=== PATIENT | male | born 1965 | race Caucasian/White ===

== ENCOUNTER 2018-01-02 03:30 | Inpatient (IN) | payer OTHER ==
[~2018-01-02] VITALS: Ht 170.2 cm; Wt 88.0 kg
[2018-01-02] VITALS (17 sets, daily range): BP systolic 92–131; BP diastolic 60–80
--- NOTE | 2018-01-02 03:41 | NUR ---
Respiratory Therapist at bedside for respiratory intervention.
--- NOTE | 2018-01-02 03:41 | NUR ---
XRAY AT BEDSIDE
[2018-01-02] MEDS ORDERED: ACETAMINOPHEN 325 MG SUPP RC ONE (03:43)
[2018-01-02] MEDS ORDERED: NACL 0.9% 1,000 ML IV ONE ×2 (03:50→06:50)
--- NOTE | 2018-01-02 03:50 | NUR ---
52YO M BIBA FROM [facility] [place], FOR DECREASED O2 SAT. PT WAS SATING AT 89 ON ARIVAL, RT WAS CALLED ON ARRIVAL, BILAT. RHONCHI HEARD THROUGHOUT. PT HAS G-TUBE, SUPUBIC VELASQUEZ PRIOR TO ARRIVAL. PT HAS TRACH TO VENT. VENT SETTING ARE FOLLOWS AC/VC MODE, FIO2 50 %, VT 500, PEEP 5, PMAX 40, RATE 16. PT HAS BILAT LOWER EXTREMITY CONTRACTURE WELL RIGHT ARM. PT WAS FEBRILE ON ADMISSION. COOLING MEASURES WERE APPLIED. ER/MD MADE AWARE.
[2018-01-02] MEDS ORDERED: MER1I IV (04:11)
[2018-01-02] MEDS ORDERED: LORA-476 PO (04:11)
[2018-01-02] MEDS ORDERED: VANC1PDS13 IV (04:11)
[2018-01-02] MEDS ORDERED: LACT-2 (04:11)
[2018-01-02] MEDS ORDERED: ZOLP5TAB1 PO (04:11)
[2018-01-02] MEDS ORDERED: ASCO500T45 PO (04:11)
[2018-01-02] MEDS ORDERED: MULT15LI1 GT (04:11)
[2018-01-02] MEDS ORDERED: POTA10TE30 PO (04:11)
[2018-01-02] MEDS ORDERED: CARB15SO23 OP (04:11)
[2018-01-02] MEDS ORDERED: AMIK500I IV (04:11)
[2018-01-02] MEDS ORDERED: CITA40TA13 PO (04:11)
[2018-01-02] MEDS ORDERED: MULT400T8 PO (04:11)
[2018-01-02] MEDS ORDERED: MAGN400S60 PO (04:11)
[2018-01-02] MEDS ORDERED: FAMO-90 PO (04:11)
[2018-01-02] MEDS ORDERED: ALLO100T21 PO (04:11)
[2018-01-02] MEDS ORDERED: LYR50 PO (04:11)
[2018-01-02] MEDS ORDERED: LEVOFLOXACIN 500 MG/D5W PREMIX 100 ML IV ONE (04:20)
--- NOTE | 2018-01-02 04:20 | NUR ---
Patient being evaluated by physician at bedside.
[2018-01-02] MEDS ORDERED: ACETAMINOPHEN 650 MG SUPP RC ONE (05:20)
[2018-01-02 05:28] LABS: APPEARANCE,URINE CLOUDY (CLEAR); BILIRUBIN,URINE NEGATIVE (NEGATIVE); BLOOD, URINE 2+ (NEGATIVE); COLOR,URINE YELLOW (YELLOW); LEUKOCYTE ESTERASE ,URINE 3+ (NEGATIVE); NITRITE, URINE POSITIVE (NEGATIVE); PH,URINE 8.5 (5.0-9.0); UGLUCOSE NEGATIVE (NEGATIVE)
[2018-01-02 05:28] LABS: HEMOGLOBIN 12.9 g/dL (12.0-18.0); MEAN CORPUSCULAR HEMOGLOBIN 28 pg (27-31); MEAN CORPUSCULAR HGB CONC 32 g/dL (33-37); MEAN CORPUSCULAR VOLUME 85.6 fL (80-94); PLATELET COUNT (AUTO) 323 K/uL (140-450); RED BLOOD CELL COUNT(AUTO) 4.68 MIL/uL (4.20-6.10); RED CELL DISTRIBUTION WIDTH 19.6 % (11.6-13.7); WHITE BLOOD COUNT (AUTO) 16.3 K/uL (4.8-10.8)
[2018-01-02 05:39] LABS: RBC,URINE 3-10 (FEW) /HPF (0-5); WBC,URINE 20-60 /HPF (0-5)
[2018-01-02 05:41] LABS: ANION GAP 9.2 (8-16); CREATININE 0.5 mg/dL (0.7-1.3); POTASSIUM 3.2 mmol/L (3.5-5.1)
[2018-01-02 05:49] LABS: LYMPHOCYTES % (MANUAL) 5 % (20-46); MONOCYTES % (MANUAL) 1 % (5-12)
[2018-01-02 05:54] LABS: ALBUMIN 2.7 g/dL (3.4-5.0); TOTAL BILIRUBIN 0.4 mg/dL (0.0-1.0)
--- NOTE | 2018-01-02 06:00 | NUR ---
Patient noted to have existing wounds upon arrival to ER. Photos taken of wound and placed in chart. Wound covered with dressing. Physician informed.
--- NOTE | 2018-01-02 06:48 | NUR ---
LAB AT BEDSIDE
--- NOTE | 2018-01-02 06:53 | NUR ---
Respiratory Therapist at bedside for respiratory intervention.
--- NOTE | 2018-01-02 06:57 | NUR ---
PATIENT AWAKE. TRACH TO VENT. TRACH PORTEX 8. AIRWAY SECURE AND PATENT. SUCTIONED LARGE AMOUNT OF THICK YELLOW, BLOOD TINGED SPUTUM. RECEIVED PATIENT ON VENT SETTINGS: AC/VC 500, RATE 16, 50% FIO2, PEEP 5. PATIENT TOLERATING VENT WELL. ALARMS ON AND AUDIBLE. WILL CONTINUE TO MONITOR.
--- NOTE | 2018-01-02 07:17 | NUR ---
Pt report given to WAYNE ETIENNE. Transfer of care at this time.
--- NOTE | 2018-01-02 07:28 | NUR ---
MED HX; CHRONIC RESP FAILURE, RT FEMUR FX, DVT, PSEUDOANEURYSM, OSTOPENIA, OSTEOARTHRITIS, HTN, CVA, DYSPHAGIA, NEUROGENIC BLADDER, GERD, FUNC QUAD, CONTRACTURES, PRESSURE ULCER
--- NOTE | 2018-01-02 07:33 | NUR ---
RECIEVED BEDSIDE REPORT FROM [facility] VITALS TAKEN AND UPDATED IN CHART.
[2018-01-02] MEDS ORDERED: ONDANSETRON 4 MG/2 ML VIAL IVP PRN (08:50)
[2018-01-02] MEDS ORDERED: LORazepam 1 MG TAB PO PRN (08:50)
[2018-01-02] MEDS ORDERED: ACETAMINOPHEN 325 MG TAB GT PRN (08:50)
[2018-01-02] MEDS ORDERED: MULTIVITAMIN WITH FOLIC ACID PO SCH (09:00)
[2018-01-02] MEDS ORDERED: FAMOTIDINE 20 MG TAB PO SCH (09:00)
[2018-01-02] MEDS: POTASSIUM CHLORIDE 10 MEQ TABER PO SCH ×2 (09:00→13:33)
[2018-01-02] MEDS ORDERED: [UNRECOGNIZED DRUG - OTHER] PO SCH (09:00)
[2018-01-02] MEDS ORDERED: ASCORBIC ACID 500 MG TAB PO SCH (09:00)
[2018-01-02] MEDS ORDERED: MAGNESIUM HYDROXIDE 2400 MG/30 ML UDC PO SCH (09:00)
[2018-01-02] MEDS ORDERED: CITALOPRAM 20 MG TAB PO SCH (09:00)
[2018-01-02] MEDS ORDERED: GLYCERIN OP SCH (09:00)
[2018-01-02] MEDS ORDERED: LACTOBACILLUS ACIDOPHILUS SCH (09:00)
[2018-01-02] MEDS ORDERED: PREGABALIN 50 MG CAP PO SCH (09:00)
[2018-01-02] MEDS ORDERED: ALLOPURINOL 100 MG TAB PO SCH (09:00)
[2018-01-02] MEDS ORDERED: CARBOXYMETHYLCELLULOS OP SCH (09:00)
[2018-01-02] MEDS ORDERED: LACTOBACILLUS RHAMNOSUS GG 1 EACH CAP PO SCH (09:00)
[2018-01-02] MEDS ORDERED: LORazepam 1 MG TAB GT PRN (09:10)
[2018-01-02] MEDS: PREGABALIN 50 MG CAP GT SCH ×3 (10:00→20:47)
[2018-01-02] MEDS: CITALOPRAM 20 MG TAB GT SCH ×2 (10:00→14:30)
[2018-01-02] MEDS: FAMOTIDINE 20 MG TAB GT SCH ×2 (10:00→13:33)
[2018-01-02] MEDS: ASCORBIC ACID 500 MG TAB GT SCH ×2 (10:00→13:32)
[2018-01-02] MEDS: LACTOBACILLUS RHAMNOSUS GG 1 EACH CAP GT SCH ×2 (10:00→13:32)
[2018-01-02] MEDS: ALLOPURINOL 100 MG TAB GT SCH ×2 (10:00→14:30)
[2018-01-02] MEDS: MAGNESIUM HYDROXIDE 2400 MG/30 ML UDC GT SCH ×3 (10:00→20:47)
--- NOTE | 2018-01-02 10:06 | NUR ---
PT TAKEN TO ICU 1
--- NOTE | 2018-01-02 10:30 | NUR ---
PT TRANSFERRED FROM ER TO ICU VIA GURNEY X 3 ASSISTS. BEDSIDE REPORT RECEIVED FROM ER NURSE LOWELL. PT IS NONVERBAL, FOLLOWS SIMPLE COMMANDS. AFEBRILE UPON ARRIVAL. FLACC 0. SINUS RHYTHM ON MONITOR. PT IS ON TRACH TO VENT W/ SETTINGS AC 16, FIO2 50%, VT 500, PEEP 5. ABDOMEN ROUND, SOFT, NONDISTENDED. G-TUBE IN PLACE. PT CAME IN WITH LIQUID BOWEL MOVEMENT. CLEANED PT AND CHANGED GOWN. PT TOLERATED WELL. PERIPHERAL IV G22 TO ABDOMEN ASYMPTOMATIC AND INTACT. ANOTHER PERIPHERAL IV G22 TO LEFT SHOULDER DISLODGED. SUPRAPUBIC CATHETER IN PLACE DRAINING URINE TO DRAINAGE BAG. PT IS DIAPHORETIC, SKIN IS WARM TO TOUCH. RIGHT ARM FLACCID, ABLE TO MOVE LEFT UPPER EXTREMITY. BILATERAL LOWER EXTREMITIES CONTRACTED. PRESSURE WOUND TO RIGHT HEEL AND LEFT BUTTOCK, AND SCAB TO LEFT HEEL NOTED. HOB 30 DEGREES, CALL LIGHT WITHIN REACH AND BED IN LOWEST POSITION. WILL CONTINUE TO MONITOR.
--- NOTE | 2018-01-02 10:34 | NUR ---
PATIENT IN ICU BED 1. TRACH TO VENT. VENT SETTINGS MAINTAINED DOCUMENTED. VENT PLUGGED INTO RED OUTLET. ALARMS ON AND AUDIBLE. AMBU BAG AT BEDSIDE. NO RESPIRATORY DISTRESS AT THIS TIME. WILL CONTINUE TO MONITOR.
--- NOTE | 2018-01-02 11:20 | NUR ---
PATIENT AWAKE, RESTING. VENT CHECK DONE. SUCTIONED LARGE AMOUNT OF THICK YELLOW SECRETIONS. WILL CONTINUE TO MONITOR.
[2018-01-02] MEDS: DEXT 5% /NACL 0.9% 1,000 ML IV SCH ×2 (11:33→18:48)
[2018-01-02] MEDS: HYDROcodone/APAP 5/325 MG 1 TAB TAB GT PRN ×2 (11:43→21:15)
--- NOTE | 2018-01-02 11:46 | NUR ---
PATIENT HAS BEEN SCREENED AND CATEGORIZED HIGH NUTRITION RISK. PATIENT WILL BE SEEN WITHIN 1-2 DAYS OF ADMISSION. 01/03/18 - 01/04/18 MARILYN KRUEGER MBA, JOANA Addendum: 01/02/18 at [address] DATE OF ASSESSMNET IS 01/02/18 - 01/03/18
[2018-01-02] MEDS ORDERED: ALBUTEROL SULFATE/IPRATROPIU 3 ML SOL IH PRN (12:20)
[2018-01-02] MEDS ORDERED: ACETYLCYSTEINE 20% (200 MG/ML) 200 MG/ML VIAL INH SCH (12:20)
--- NOTE | 2018-01-02 12:54 | NUR ---
IN TO SEE AND EXAMINE PATIENT, UPDATED ON PATIENT'S CONDITION. WILL FOLLOW UP ON ANY ORDERS.
[2018-01-02] MEDS ORDERED: VANCOMYCIN PER PHARMACY MC PRN (12:55)
[2018-01-02] MEDS ORDERED: AMIKACIN PER PHARMACY MC PRN (12:55)
[2018-01-02] MEDS ORDERED: metroNIDAZOLE 500 MG TAB PO SCH (13:00)
--- NOTE | 2018-01-02 13:11 | NUR ---
PATIENT QUIETLY RESTING. TOLERATING VENT WELL. ALARMS ON AND AUDIBLE. WILL CONTINUE TO MONITOR.
--- NOTE | 2018-01-02 13:37 | NUR ---
PATIENT CLEANED AND CHANGED, NO SIGNS OF DISTRESS NOTED. WILL CONTINUE TO MONITOR
[2018-01-02] MEDS: VANCOMYCIN 1GM/DEXT 5% PREMIX 200 ML IV SCH ×2 (14:31→21:14)
[2018-01-02] MEDS: ACETYLCYSTEINE 20% (200 MG/ML) 200 MG/ML VIAL INH SCH ×3 (15:00→23:05)
[2018-01-02] MEDS: ALBUTEROL SULFATE/IPRATROPIU 3 ML SOL IH SCH ×3 (15:30→23:04)
--- NOTE | 2018-01-02 15:50 | NUR ---
PATIENT AWAKE. VENT CHECK DONE. DUONEB BREATHING TX ADMINISTERED. MUCOMYST NOT AVAILABLE AT THIS TIME. TOLERATED TX WELL. SUCTIONED LARGE AMOUNT OF THICK YELLOW SECRETIONS. TRACH CARE PERFORMED, TOLERATED WELL/ WILL CONTINUE TO MONITOR.
[2018-01-02] MEDS ORDERED: LEVOFLOXACIN 500 MG/D5W PREMIX 100 ML IV SCH (16:00)
--- NOTE | 2018-01-02 16:04 | NUR ---
PATIENT IS OBSERVED SLEEPING, NO SIGNS OF DISTRESS NOTED.
--- NOTE | 2018-01-02 17:20 | NUR ---
PATIENT AWAKE AND ALERT. SUCTIONED LARGE AMOUNT OF THICK YELLOW SECRETIONS. VENT PLUGGED INTO RED OUTLET. AMBU BAG AT BEDSIDE. ALARMS ON AND AUDIBLE. NO RESPIRATORY DISTRESS NOTED AT THIS TIME.
[2018-01-02] MEDS: AMIKACIN 500 MG in DEXTROSE 5% 100 ML IV SCH (17:41)
[2018-01-02] MEDS: POLYVINYL ALCOHOL 1.4% OP 15 ML SOL OP SCH ×2 (17:41→20:47)
--- NOTE | 2018-01-02 19:30 | NUR ---
BEDSIDE REPORT RECEIVED FROM MORNING NURSE RN. GREY. PT IS AWAKE, NONVERBAL, FOLLOWS SIMPLE COMMANDS. FLACC 0. SINUS RHYTHM ON THE MONITOR. PT IS ON TRACH TO VENT W/ SETTINGS AC 16, FIO2 50%, VT 500, PEEP 5. ABDOMEN ROUND, SOFT, NONDISTENDED. G-TUBE IN PLACE AT LEFT UPPER QUAD. PERIPHERAL TO LEFT ABDOMEN, G 22. ASYMPTOMATIC AND INTACT AND PATENT. SUPRAPUBIC CATHETER IN PLACE DRAINING YELLOW, CLOUDY URINE TO DRAINAGE BAG. PT IS DIAPHORETIC, SKIN IS WARM TO TOUCH. RIGHT ARM FLACCID, ABLE TO MOVE LEFT UPPER EXTREMITY. BILATERAL LOWER EXTREMITIES CONTRACTED. PRESSURE WOUND TO RIGHT HEEL AND LEFT BUTTOCK, AND SCAB TO LEFT HEEL NOTED. HOB 30 DEGREES, CALL LIGHT WITHIN REACH AND BED IN LOWEST POSITION. WILL CONTINUE TO MONITOR.
--- NOTE | 2018-01-02 19:30 | NUR ---
ENDORSED CONTINUITY OF CARE AT BEDSIDE TO WATER RESOURCE ENGINEERING SPECIALIST RN, ADRIANA. PATIENT PRESENTS NO SIGNS OF ACUTE DISTRESS AT THIS TIME.
[2018-01-02] MEDS ORDERED: ZOLPIDEM 5 MG TAB PO PRN (21:00)
[2018-01-02] MEDS ORDERED: ZOLPIDEM 5 MG TAB GT PRN (21:00)
--- NOTE | 2018-01-02 21:15 | NUR ---
ADMINISTERED SCHEDULED MEDICATIONS ORDERED, TOLERATED WELL. PT COMPLAINED ABOUT BACK PAIN 02/27. ADMINISTERED PRN NORCO 5/325 MG ORDERED. NO ACUTE RESPIRATORY DISTRESS NOTED. ST ON THE MONITOR. HR 102 NOTED. WILL CONTINUE TO MONITOR.
--- NOTE | 2018-01-02 21:30 | NUR ---
ADMINISTERED IV ABX ORDERED, TOLERATED WELL. PT IS IN ASLEEP, AROUSABLE TO VOICE. NO ACUTE DISTRESS NOTED. WILL CONTINUE TO MONITOR.
--- NOTE | 2018-01-02 23:20 | NUR ---
DR. RESENDIZ AT BEDSIDE TO CHECK THE PT. WILL FOLLOW THE ORDER.
[2018-01-03] VITALS (24 sets, daily range): BP systolic 92–131; BP diastolic 57–81
--- NOTE | 2018-01-03 01:00 | NUR ---
PT IS IN ASLEEP, AROUSABLE TO VOICE. FLACC 0. NO ACUTE RESPIRATORY DISTRESS NOTED. SR ON THE MONITOR. WILL CONTINUE TO MONITOR.
--- NOTE | 2018-01-03 02:40 | NUR ---
PT IS IN ASLEEP, AROUSABLE TO VOICE. NO ACUTE DISTRESS NOTED. NO FEVER. SR ON THE MONITOR. HOB ELEVATED 30 DEGREE. CALL LIGHT WITHIN REACH. WILL CONTINUE TO MONITOR.
[2018-01-03] MEDS: ALBUTEROL SULFATE/IPRATROPIU 3 ML SOL IH SCH ×6 (03:33→23:22)
[2018-01-03] MEDS: ACETYLCYSTEINE 20% (200 MG/ML) 200 MG/ML VIAL INH SCH ×6 (03:34→23:22)
--- NOTE | 2018-01-03 05:00 | NUR ---
PT IS IN ASLEEP, AROUSABLE TO VOICE, ABLE TO FOLLOW SIMPLE COMMANDS, ABLE TO MAKE NEEDS KNOWN. NO ACUTE DISTRESS NOTED. SR ON THE MONITOR. WILL CONTINUE TO MONITOR.
[2018-01-03] MEDS: DEXT 5% /NACL 0.9% 1,000 ML IV SCH ×3 (05:22→23:16)
[2018-01-03] MEDS: AMIKACIN 500 MG in DEXTROSE 5% 100 ML IV SCH ×2 (05:26→17:33)
--- NOTE | 2018-01-03 06:15 | NUR ---
ADMINISTERED SCHEDULED IV ABX, TOLERATED WELL. NO FEVER, NO ACUTE DISTRESS NOTED. WILL CONTINUE TO MONITOR.
[2018-01-03] MEDS: VANCOMYCIN 1GM/DEXT 5% PREMIX 200 ML IV SCH (06:16)
[2018-01-03 06:36] LABS: CARBON DIOXIDE 26.5 mmol/L (21-32); CREATININE 0.5 mg/dL (0.7-1.3); POTASSIUM 3.5 mmol/L (3.5-5.1); TOTAL BILIRUBIN 0.4 mg/dL (0.0-1.0)
[2018-01-03 06:37] LABS: ALBUMIN 2.2 g/dL (3.4-5.0)
--- NOTE | 2018-01-03 06:47 | NUR ---
RECEIVED PT ON CARESCAPE ON A/C 16 VT500 PEEP5 FIO2 50 ALARMS ARE ON AND AUDIBLE BMV HOB PTS TRACH PORTEX 8 IS SECURE BS RHONCI PT IN HF QUIET I\L HHN GIVEN WITH 3 MG DUONEB AND 2 ML 20% MUCOMYST VENT PLUGGED INTO RED OUTLET NO DISTRESS NOTED
[2018-01-03 06:48] LABS: HEMOGLOBIN 11.4 g/dL (12.0-18.0); MEAN CORPUSCULAR HEMOGLOBIN 29 pg (27-31); MEAN CORPUSCULAR HGB CONC 33 g/dL (33-37); MEAN CORPUSCULAR VOLUME 86.8 fL (80-94); PLATELET COUNT (AUTO) 252 K/uL (140-450); RED BLOOD CELL COUNT(AUTO) 3.92 MIL/uL (4.20-6.10); RED CELL DISTRIBUTION WIDTH 18.1 % (11.6-13.7); WHITE BLOOD COUNT (AUTO) 23.4 K/uL (4.8-10.8)
--- NOTE | 2018-01-03 07:30 | NUR ---
REPORT GIVEN TO RN. REECE. FOR CONTINUITY OF CARE.
--- NOTE | 2018-01-03 08:00 | NUR ---
INITIAL SHIFT ASSESSMENT DONE (SEE ASSESSMENT PART). AWAKE AND FOLLOWING COMMAND. ARNULFO AND PAUL ARE CONTRACTED D/T HX OF CVA. COMMUNICATES BY MOUTH-WORDING. NO C/O PAIN. ON VENTILATOR VIA TRACH, TOLERATING CURRENT SETTINGS WELL. O2 SAT 95-96%. SR ON MONITOR. SBP IN 110'S. NO ECTOPY NOTED. G-TUBE PATENT, INTACT, AND CLAMPED. HOB ELEVATED. UPDATED OF PLAN OF CARE. WILL CONTINUE TO MONITOR.
[2018-01-03 08:09] LABS: LYMPHOCYTES % (MANUAL) 15 % (20-46)
[2018-01-03 08:10] LABS: EOSINOPHILS % (MANUAL) 1 % (0-4); MONOCYTES % (MANUAL) 6 % (5-12)
[2018-01-03] MEDS ORDERED: MULTIVITAMIN 1 TAB PO SCH (09:00)
[2018-01-03] MEDS: MAGNESIUM HYDROXIDE 2400 MG/30 ML UDC GT SCH ×2 (09:00→21:00)
[2018-01-03] MEDS: LACTOBACILLUS RHAMNOSUS GG 1 EACH CAP GT SCH (09:22)
[2018-01-03] MEDS: ASCORBIC ACID 500 MG TAB GT SCH (09:23)
[2018-01-03] MEDS: POTASSIUM CHLORIDE 10 MEQ TABER PO SCH (09:23)
[2018-01-03] MEDS: PREGABALIN 50 MG CAP GT SCH ×2 (09:23→20:15)
[2018-01-03] MEDS: MULTIVITAMIN 1 TAB PO SCH (09:23)
--- NOTE | 2018-01-03 09:23 | NUR ---
PATIENT HAS BEEN SCREENED AND CATEGORIZED HIGH NUTRITION RISK. PATIENT WILL BE SEEN WITHIN 1-2 DAYS OF ADMISSION. 01/02/18 - 01/03/[address]
[2018-01-03] MEDS: FAMOTIDINE 20 MG TAB GT SCH (09:24)
[2018-01-03] MEDS: CITALOPRAM 20 MG TAB GT SCH (09:24)
[2018-01-03] MEDS: ALLOPURINOL 100 MG TAB GT SCH (09:24)
--- NOTE | 2018-01-03 09:24 | NUR ---
PATIENT HAS BEEN SCREENED AND CATEGORIZED HIGH NUTRITION RISK. PATIENT WILL BE SEEN WITHIN 1-2 DAYS OF ADMISSION. 01/03/18 - 01/04/[address] Addendum: 01/03/18 at [address] DISREGARD ABOVE NOTE. PATIENT IS STILL HIGH NUTRITION RISK AND DATE OF INITIAL ASSESSMENT WILL BE 01/02/18 -01/03/[address]
[2018-01-03] MEDS: POLYVINYL ALCOHOL 1.4% OP 15 ML SOL OP SCH ×4 (09:25→20:16)
--- NOTE | 2018-01-03 10:00 | NUR ---
RESTING IN BED. NO C/O PAIN. TOLERATING VENTILATOR WELL. O2 SAT 93-97%. ST ON MONITOR. SBP IN 120'S-130. NO ECTOPY NOTED. HOB ELEVATED. WILL CONTINUE TO MONITOR.
[2018-01-03] MEDS ORDERED: PROBIOTIC SCREEN 1 EA MISC MC PRN (10:10)
--- NOTE | 2018-01-03 11:00 | NUR ---
HAS BM AT THIS TIME, MODERATE AMOUNT, LOOSE, AND BROWN COLOR. GIVEN PARTIAL BATH AND LINENS ARE CHANGE. TOLERATED THE PROCEDURE WELL.
--- NOTE | 2018-01-03 12:00 | NUR ---
REASSESSMENT DONE. NEURO STATUS UNCHANGED. NO C/O PAIN. TOLERATING CURRENT VENTILATOR SETTINGS WELL. O2 SAT 93-99%. ST ON MONITOR. SBP IN 110'S-130'S. NO ECTOPY NOTED. HOB ELEVATED. UPDATED OF PLAN OF CARE. WILL CONTINUE TO MONITOR.
--- NOTE | 2018-01-03 12:49 | NUR ---
DR. RESENDIZ CALLED BACK. NOTIFIED OF POSITIVE BLOOD CULTURE RESULTS.
--- NOTE | 2018-01-03 14:00 | NUR ---
RESTING IN BED. NO SIGNS OF PAIN. OCCASIONAL AGITATION NOTED. TOLERATING VENTILATOR WELL. O2 SAT 99-100%. A-FLUTTER ON MONITOR. SBP IN 100'S-120'S. HOB ELEVATED. WILL CONTINUE TO MONITOR. Addendum: 01/03/18 at 1444 by Agency 03 RN RN WRONG PATIENT - RESTING IN BED. NO C/O PAIN. TOLERATING VENTILATOR WELL. O2 SAT 98-99%. SR ON MONITOR. SBP IN 110'S. NO ECTOPY NOTED. HOB ELEVATED. WILL CONTINUE TO MONITOR.
--- NOTE | 2018-01-03 14:22 | NUR ---
TALK TO PHARMACIST KIM ON THE PHONE AND INFORM OF VANCOMYCIN TROUGH RESULT. PHARMACIST SAID "DO NOT GIVE THE VANCOMYCIN DOSE FOR 1400, WILL RE-DOSE."
--- NOTE | 2018-01-03 14:29 | NUR ---
01/03/18 RD INITIAL ASSESSMENT COMPLETED PLEASE REFER TO NUTRITION ASSESSMENT UNDER CARE ACTIVITY FOR ESTIMATED NUTRITIONAL NEEDS. 1.RECOMMEND ISOSOURCE AT 65 ML/HR -THIS WILL PROVIDE 2340 KCAL AND 106 GM PROTEIN /DAY AND 1,185 ML OF WATER. PT WILL RECEIVE 100 % OF ESTIMATED ENERGY AND PROTEIN NEEDS FOR PRESSURE ULCER/WOUND HEALING. 2. RD TO FOLLOW-UP 2-3 DAYS, HIGH RISK TRICIA COCHRAN RD
--- NOTE | 2018-01-03 16:00 | NUR ---
REASSESSMENT DONE. NEURO STATUS STILL THE SAME. NO C/O PAIN. TOLERATING CURRENT VENTILATOR SETTINGS WELL. O2 SAT 98-100%. SR ON MONITOR. SBP IN 110'S. NO ECTOPY NOTED. HAS BM AGAIN AT THIS TIME, LARGE AMOUNT, LOOSE, AND DARK GREENISH BROWN COLOR. GIVEN PARTIAL BATH AND LINENS ARE CHANGE. TOLERATED THE PROCEDURE WELL. HOB ELEVATED. UPDATED OF PLAN OF CARE. WILL CONTINUE TO MONITOR.
--- NOTE | 2018-01-03 17:55 | NUR ---
TALK TO DR RAUSCH ON THE PHONE. UPDATED OF LAB RESULT. NEW ORDER RECEIVE.
--- NOTE | 2018-01-03 18:00 | NUR ---
RESTING IN BED. NO C/O PAIN. TOLERATING VENTILATOR WELL. O2 SAT 97-98%. SR ON MONITOR. SBP IN 110'S-120'S. NO ECTOPY NOTED. HOB ELEVATED. WILL CONTINUE TO MONITOR.
[2018-01-03] MEDS: CHLORHEXADINE GLUC 2% CLOTH TP SCH (18:39)
[2018-01-03] MEDS: MUPIROCIN 2% OINT 22 GM TUBE TP SCH (19:00)
--- NOTE | 2018-01-03 19:05 | NUR ---
REPORT GIVEN TO INCOMING REMOTE SENSING SURVEYOR RN, WAYNE PARNELL.
--- NOTE | 2018-01-03 19:06 | NUR ---
RECEIVED REPORT AT PT BEDSIDE FROM DAY SHIFT RN, FOR CONTINUITY OF CARE. PATIENT IS AWAKE, ON A TRACH TO VENT. PT MOUTHS WORDS SOUNDING LIKE WHISPERS, NODS, AND FOLLOWS COMMANDS. ABLE TO MAKE NEEDS KNOWN. PT HAS MULTIPLE WOUNDS, THE ONLY OPEN ONE IS ON HIS RIGHT KNEE WITH DRESSING CLEAN, DRY AND INTACT. PATIENT HAS PERIPHERAL IV SITE TO RIGHT FOREARM 22G, ASYMPTOMATIC, INTACT, PATENT, SHE ALSO HAS A 22G IV TO HER LEFT ABDOMEN, SALINE LOCKED. PT HAS A SUPRAPUBIC CATHETER IN PLACE, AND A G-TUBE. SR ON MONITOR, RESPIRATIONS EVEN AND UNLABORED. CALL LIGHT IS WITHIN REACH. HOB IS SEMI-FOWLERS IN LOWEST POSITION. NO SIGNS OF DISTRESS NOTED AT THIS TIME. WILL MONITOR PT CLOSELY.
[2018-01-03] MEDS: CLINDAMYCIN 600 MG in DEXTROSE 5% 50 ML IV SCH (20:15)
[2018-01-03] MEDS: HYDROcodone/APAP 5/325 MG 1 TAB TAB GT PRN (20:15)
--- NOTE | 2018-01-03 20:15 | NUR ---
ADMINISTERED SCHEDULED PO MEDICATIONS AND PAIN MEDICATION THROUGH G-TUBE. NO RESIDUAL ASPIRATED. ADMINISTERED PAIN MEDICATION NORCO PER ORDER FOR FLACC SCORE 5, AND PATIENT POINTING AT HEAD AND MOUTHING "PAIN PILL." GAVE MEDS AND FLUSHED WITH 30ML OF STERILE WATER, PT TOLERATED WELL. CLEOCIN NOW INFUSING WELL, PT TOLERATING WELL.
--- NOTE | 2018-01-03 21:01 | NUR ---
HELD MILK OF MAGNESIA BECAUSE PT HAD TWO LOOSE BOWEL MOVEMENTS TODAY.
--- NOTE | 2018-01-03 21:20 | NUR ---
DECREASED FIO2 TO 40%. SATS 96%. NO SOB NOTED, SXNED PT MOD AMT PALE YELLOW SECRETIONS
--- NOTE | 2018-01-03 22:30 | NUR ---
PT REQUESTS SLEEPING PILL. ADMINISTERED AMBIEN THROUGH G-TUBE AND FLUSHED WITH 30ML OF STERILE WATER. PT TOLERATED WELL. VITAL SIGNS WITHIN NORMAL LIMITS. WILL CONTINUE TO MONITOR PT CLOSELY.
--- NOTE | 2018-01-03 22:41 | NUR ---
SPOKE TO DR RESENDIZ ABOUT PT BEING ON CONTACT PRECAUTIONS FOR MRSA IN THE NARES AND HX OF C. DIFF, AND PT BEING ON ABX. ASKED HIM IF IT WAS NECESSARY TO SEND STOOL TO LAB FOR CULTURE. DR RESENDIZ SAID IT WAS NOT NECESSARY UNLESS PT HAD DIARRHEA.
[2018-01-03] MEDS: VANCOMYCIN 1,500 MG in DEXTROSE 5% 500 ML IV SCH (23:11)
[2018-01-04] VITALS (16 sets, daily range): BP systolic 92–126; BP diastolic 48–79
--- NOTE | 2018-01-04 | NUR ---
SBP ON THE LOWER SIDE BUT STILL NORMAL. THE REST OF THE VITAL SIGNS ARE STABLE. NO SIGNS OF DISTRESS NOTED. WILL CONTINUE TO MONITOR PT CLOSELY
--- NOTE | 2018-01-04 02:00 | NUR ---
PT STABLE, NO SIGNS OF DISTRESS NOTED AT THIS TIME. WILL MONITOR PT CLOSELY.
[2018-01-04] MEDS: ALBUTEROL SULFATE/IPRATROPIU 3 ML SOL IH SCH ×6 (03:05→23:28)
[2018-01-04] MEDS: ACETYLCYSTEINE 20% (200 MG/ML) 200 MG/ML VIAL INH SCH ×6 (03:06→23:00)
[2018-01-04] MEDS: MORPHINE SULFATE 4 MG/ML SYR IVP PRN ×3 (04:08→17:28)
--- NOTE | 2018-01-04 04:15 | NUR ---
CLEANED PT WITH THE HELP OF KAILEY ADKINS RN. PT TOLERATED WELL. PT STABLE, NO SIGNS OF DISTRESS NOTED AT THIS TIME. WILL CONTINUE TO MONITOR PT CLOSELY.
--- NOTE | 2018-01-04 05:17 | NUR ---
decreased fio2 to 30%. sats 94%. no sob noted
[2018-01-04] MEDS: CLINDAMYCIN 600 MG in DEXTROSE 5% 50 ML IV SCH ×3 (05:19→22:28)
--- NOTE | 2018-01-04 05:51 | NUR ---
ENDORSED PT TO ISOTOPE TECHNOLOGIST IRENE FOR CONTINUITY OF CARE. PT IN STABLE CONDITION.
[2018-01-04 05:53] LABS: BASOPHILS # (AUTO) 0.2 K/uL (0.00-0.22); EOSINOPHILS # (AUTO) 0.2 K/uL (0-0.4); HEMATOCRIT 35.5 % (36-52); LYMPHOCYTES # (AUTO) 2.3 K/uL (2.0-11.5)
[2018-01-04] MEDS: AMIKACIN 500 MG in DEXTROSE 5% 100 ML IV SCH (06:03)
[2018-01-04 06:09] LABS: ALBUMIN 2.3 g/dL (3.4-5.0); ANION GAP 7.3 (8-16); CARBON DIOXIDE 29.1 mmol/L (21-32); CREATININE 0.5 mg/dL (0.7-1.3); POTASSIUM 3.4 mmol/L (3.5-5.1); TOTAL BILIRUBIN 0.5 mg/dL (0.0-1.0)
[2018-01-04 06:16] LABS: BASOPHILS % (AUTO) 1.7 % (0.0-2.0); EOSINOPHILS % (AUTO) 1.7 % (0.0-4.0); HEMOGLOBIN 11.5 g/dL (12.0-18.0); LYMPHOCYTES % (AUTO) 18.6 % (20.5-51.1); MEAN CORPUSCULAR HEMOGLOBIN 28 pg (27-31); MEAN CORPUSCULAR HGB CONC 33 g/dL (33-37); MEAN CORPUSCULAR VOLUME 86.8 fL (80-94); MONOCYTES # (AUTO) 0.7 K/uL (0.8-1.0); MONOCYTES % (AUTO) 5.6 % (1.7-9.3); NEUTROPHILS # (AUTO) 8.9 K/uL (1.8-7.7); NEUTROPHILS % (AUTO) 72.4 % (42.2-75.2); PLATELET COUNT (AUTO) 254 K/uL (140-450); RED BLOOD CELL COUNT(AUTO) 4.09 MIL/uL (4.20-6.10); RED CELL DISTRIBUTION WIDTH 18.3 % (11.6-13.7); WHITE BLOOD COUNT (AUTO) 12.3 K/uL (4.8-10.8)
--- NOTE | 2018-01-04 06:23 | NUR ---
REC'D PT ON CARESCAPE VENT SETTINGS AC 16 VT 500 PEEP 5 FIO2 30% ALARMS ON AND AUDIBLE, AMBU BAG IS AT SIDE OF VENT AND VENT IS PLUGGED INTO RED OUTLET, I\L TX GIVEN WITH DUONEB 3ML AND 20% 2ML OF MUCOMYST WITH NO ADVERSE REACTION POST TX B\S ARE RHONCHI BILATERALLY, SXN PT MODERATE AMT OF THICK YELLOW SECRETIONS, PT IS TRACH WITH PORTEX 8 AND SKIN INTEGRITY IS INTACT PT IS RESTING
--- NOTE | 2018-01-04 07:10 | NUR ---
PT IS AWAKE IN BED, ABLE TO FOLLOW SIMPLE COMMANDS, A&0X1. PT HAS SEVERE CONTRACTURES IN UPPER AND LOWER EXTREMITIES. PT IS TRACH TO VENT, DRESSING CLEAN AND DRY, SKIN AROUND TRACH IS DRY. PT HAS SUPRAPUBIC CATHETER, DRESSING DRY AND IN PLACE, SKIN DRY, YELLOW FLUID COLLECTED IN BAG. PTS SKIN IS NOT INTACT WITH SEVERAL OPEN AREAS ON SKIN (SEE WOUND ASSESSMENT). PT HAS TWO IVS; 20 JESSE RIGHT HAND, IVF RUNNING, DRESSING DRY, INTACT AND ASYMPTOMATIC, FLUSHES; 22 JESSE ON LEFT LATERAL SIDE OF ABDOMEN. LUNGS HAVE FINE CRACKLES AT BASES ON BOTH RIGHT AND LEFT LOBE, CLEAR UPPER LOBES. PT DENIES ALL PAIN. ABDOMEN IS SOFT, NONTENDER, BOWEL SOUNDS PRESENT IN ALL QUADRANTS. S1S2 HEARD. PTS SKIN IS WARM AND DRY TO TOUCH. BED LOCK AND ALARM IS ON AND BED IS IN LOWEST POSITION. CALL LIGHT WITHIN REACH. WILL CLOSELY MONITOR.
--- NOTE | 2018-01-04 08:00 | NUR ---
VAP ORAL CARE PERFORMED. REPOSITIONED PT. BED LEFT IN THE LOWEST POSITION. CALL LIGHT WITHIN REACH. BED LOCK ON
[2018-01-04] MEDS: LACTOBACILLUS RHAMNOSUS GG 1 EACH CAP GT SCH (08:27)
[2018-01-04] MEDS: FAMOTIDINE 20 MG TAB GT SCH (08:27)
[2018-01-04] MEDS: MAGNESIUM HYDROXIDE 2400 MG/30 ML UDC GT SCH ×2 (08:27→20:55)
[2018-01-04] MEDS: POTASSIUM CHLORIDE 10 MEQ TABER PO SCH (08:27)
[2018-01-04] MEDS: PREGABALIN 50 MG CAP GT SCH ×2 (08:28→20:55)
[2018-01-04] MEDS: ASCORBIC ACID 500 MG TAB GT SCH (08:28)
[2018-01-04] MEDS: ALLOPURINOL 100 MG TAB GT SCH (08:28)
[2018-01-04] MEDS: MULTIVITAMIN 1 TAB PO SCH (08:28)
[2018-01-04] MEDS: POLYVINYL ALCOHOL 1.4% OP 15 ML SOL OP SCH ×4 (08:29→20:55)
[2018-01-04] MEDS: CITALOPRAM 20 MG TAB GT SCH (08:29)
--- NOTE | 2018-01-04 08:54 | NUR ---
VENT CHECK, NO SXN REQUIRED AIRWAY IS PATENT PT IS SLEEPING WITH NO SIGNS OF DISTRESS NOTED
--- NOTE | 2018-01-04 09:10 | NUR ---
PAGED DR. RAUSCH ABOUT PT'S POTASSIUM LEVEL.
[2018-01-04] MEDS: DEXT 5% /NACL 0.9% 1,000 ML IV SCH ×2 (10:50→20:50)
--- NOTE | 2018-01-04 10:51 | NUR ---
VENT CHECK, I\L TX GIVEN WITH DUONEB 3ML AND 2ML 20% MUCOMYST WITH NO ADVERSE REACTION POST TX SXN PT SMALL AMT OF YELLOW SECRETIONS, PT IS GETTING PAIN MEDS WAYNE OLIVARES AT BEDSIDE
--- NOTE | 2018-01-04 11:00 | NUR ---
REPOSITIONED PT. VELASQUEZ CARE. PT RESTING.
--- NOTE | 2018-01-04 12:30 | NUR ---
vent check, no sxn required pt is awake and in pain rn ryan henson
[2018-01-04] MEDS: VANCOMYCIN 1,500 MG in DEXTROSE 5% 500 ML IV SCH ×2 (12:41→23:56)
--- NOTE | 2018-01-04 13:30 | NUR ---
ASSUMED CARE FROM ABI BLACK. WILL MONITOR PATIENT.
--- NOTE | 2018-01-04 13:50 | NUR ---
CALLED DR RESENDIZ TO NOTIFY ABOUT MRDO URINE
[2018-01-04] MEDS ORDERED: KCL 20 MEQ/WATER INJ PREMIX 200 ML IV SCH (14:00)
--- NOTE | 2018-01-04 14:15 | NUR ---
RECEIEVED CALL THAT MRDO SPUTUM,. WHEN I CALLED DR. RESENDIZ EARLIER HE SAID, WE ARE COVERED DUE TO AMIKASIN
--- NOTE | 2018-01-04 14:56 | NUR ---
WOUND CARE EVALUATION NOTES: REASON FOR EVALUATION: MULTIPLE WOUNDS SKIN ASSESSMENT DONE ON THIS 52 Y/O MALE PATIENT ADMITTED TO [facility], WITH INITIAL DIAGNOSIS OF DIFFICULTY BREATHING AND FEVER. PAST MEDICAL HISTORY INCLUDE CVA, QUADRIPLEGIA,MULTIPLE SCLEROSIS, HYPERTENSION AND GERD. ALL ABOVE INFORMATION WAS OBTAINED FROM THE ADMISSION H&P. LABS ARE WBC 12.3, H/H 11.5/35.5 GLUCOSE 90, ALBUMIN 2.3. PATIENT IS AWAKE, ALERT, LIP READING AND EYE CONTACT FOR COMMUNICATION. UPPER AND LOWER EXTREMITIES WITH CONTRACTURES, SKIN WARM TO TOUCH, THICKENED TOENAILS, BLE TRACE EDEMA, NO HAIR GROWTH AND BILATERAL PEDAL PULSES PRESENT. LLQ ABDOMEN PERIPHERAL IV IN PLACE.SUPRAPUBIC CATHETER PATENT AND INTACT TO JOHN COLORED URINE IN SMALL AMOUNT. NEEDS ASSISTANCE IN TURNING. PLAN OF CARE AND PRESSURE PREVENTIVE MEASURES DISCUSSED WITH PT AND PRIMARY NURSE. INTEGUMENTARY: -TRACH YENNY-STOMA SKIN INTACT. -GT YENNY-STOMA SKIN INTACT. -SUPRAPUBIC YENNY-STOMA SKIN INTACT. -MID ABDOMEN OLD HEALED SCAR -RIGHT AND LEFT BUTTOCKS MOISTURE ASSOCIATE DERMATITIS REDNESS -BLE TRACE EDEMA, MULTIPLE REDNESS TO LATERAL LEGS AND SHINS AREAS -LEFT HEEL BLACK ESCHAR 1.5X1.5CM -RIGHT KNEE PRESSURE ULCER STAGE 3, 2X2X0.3CM -RIGHT LATERAL HEEL EXTEND TO LATERAL PORTION OF FOOT PRESSURE INJURY STAGE 2, 1X1X0.1, WOUND BED IS PINK, MOIST NO ODOR, SURROUNDING REDNESS 6X5 CM (RIGHT FOOT DEFORMITY) -RIGHT MEDIAL ANKLE PRESSURE INJURY STAGE 1 5X4XM -RIGHT MID HEEL DRY BROWN SCAB 2.5X1 CM RECOMMENDATIONS: -PAINT LEFT HEEL BLACK ESCHAR WITH BETADINE SOLUTION BID WC AND LEAVE IT OPEN TO AIR -CLEANSE RIGHT AND LEFT BUTTOCKS MAD WITH SOAP AND WATER, PAT DRY, APPLY OPTIFORM CHANGE Q 5 DAY AND PRN IF SOILING -CLEANSE RIGHT LATERAL HEEL AND RIGHT MEDIAL ANKLE WITH NS, PAT DRY, APPLY OPTIFORM CHANGE Q 5 DAY AND PRN IF SOILING -CLEANSE RIGHT KNEE PRESSURE ULCER WITH NS AND GAUZE, PAT DRY, APPLY HYDROGEL,AND DRY DRESSING SECURE WITH TAPE Q DAY AND PRN IF SOILING -TURN AND REPOSITION PATIENT Q2H TO LEFT AND RIGHT SIDE ONLY TO OFFLOAD SACRALCOCCYX -ASSESS AND MONITOR SKIN CONDITION DURING POSITION CHANGE, PLEASE PAY ATTENTION TO RIGHT KNEE AND HEELS -OFFLOAD BILATERAL HEELS BY PLACING PILLOWS UNDER CALVES AT ALL TIMES, UNLESS OTHERWISE CONTRAINDICATED -HEEL RAISER TO RIGHT HEELS AT ALL TIMES -PRESSURE REDISTRIBUTION SURFACE THERAPY -KEEP SKIN CLEAN AND DRY AT ALL TIMES. RECOMMENDATIONS DISCUSSED WITH PRIMARY RN WILL FOLLOW UP PATIENT Q 7 -10 DAYS AND PRN. PLEASE CONTACT WOUND CARE NURSE FOR ANY QUESTIONS AND CHANGES IN WOUND CONDITION
--- NOTE | 2018-01-04 15:07 | NUR ---
VENT CHECK, SXN PT SMALL AMT OF YELLOW SECRETIONS, I\L TX GIVEN WITH DUONEB 3ML AND 20% 2ML MUCOMYST WITH NO ADVERSE REACTION POST TX, B\S ARE RHONCHI AND TRACH CARE DONE CHANGED TRACH GAUZE-
--- NOTE | 2018-01-04 15:15 | NUR ---
FIRST BAG OF 2 BAGS OF 40 MEQ POTASSIUM GIVEN. WILL ENDORSE TO TECHNICAL ADVISOR TO GIVE 2ND BAG.
[2018-01-04] MEDS ORDERED: FOAM DRESSING TP SCH (15:35)
[2018-01-04] MEDS ORDERED: MILD SOAP AND WATER TP SCH (15:35)
--- NOTE | 2018-01-04 16:05 | NUR ---
TRANSFERRED PATIENT TO TELE ROOM 108B. PATIENT IN STABLE CONDITION. REPORT GIVEN TO RUTHANN BLACK.
--- NOTE | 2018-01-04 16:20 | NUR ---
PT MOVED FROM ICU 1 TO ROOM 108B BAGGED WITH 100% O2 AND THEN PLACED ON VENT WITH SAME SETTINGS SXN PT MODERATE AMT OF THICK YELLOW SECRETIONS.
--- NOTE | 2018-01-04 16:25 | NUR ---
RECEIVED PATIENT AT BEDSIDE FOR CONTINUITY OF CARE FROM PROPERTY CUSTODIANHOLLI. PT IS AWAKE IN BED, ABLE TO FOLLOW SIMPLE COMMANDS, A&0X1. PT HAS SEVERE CONTRACTURES IN UPPER AND LOWER EXTREMITIES. PT IS TRACH TO VENT, DRESSING CLEAN AND DRY, SKIN AROUND TRACH IS DRY. VENT SETTINGS AC 16 VT 500 PEEP 5 FIO2 30% ALARMS ON AND AUDIBLE. PT HAS SUPRAPUBIC CATHETER, DRESSING DRY AND IN PLACE, SKIN DRY, PROPERTY CUSTODIAN EMPTIED 900 ML OF CLEAR YELLOW URINE IN BAG. PTS SKIN IS NOT INTACT WITH SEVERAL OPEN AREAS ON SKIN (SEE WOUND ASSESSMENT). PT HAS TWO IVS; 20 JESSE RIGHT HAND, IVF RUNNING, DRESSING DRY, INTACT AND ASYMPTOMATIC, FLUSHES; 22 JESSE ON LEFT LATERAL SIDE OF ABDOMEN. LUNGS SOUNDS CLEAR IN UPPER LOBES BUT FINE CRACKLES ARE PRESENT AT BASES ON BOTH RIGHT AND LEFT LOBE. PT REQUESTING PAIN MEDICATION. INFORMED PATIENT WILL MEDICATE ONCE HE IS IN THE SYSTEM. ABDOMEN IS SOFT, NONTENDER, BOWEL SOUNDS PRESENT IN ALL QUADRANTS. PTS SKIN IS WARM AND DRY TO TOUCH. SAFETY AND ISOLATION PRECAUTION IN PLACE DUE TO MRSA IN NARES AND MDRO IN SPUTUM AND URINE, BED ALARM ON, BED IN LOWEST POSITION, CALL LIGHT WITHIN REACH, WILL CONTINUE TO MONITOR PATIENT.
--- NOTE | 2018-01-04 17:00 | NUR ---
CALLED TARIFF COMPILING CLERK FOR TUBE FEEDING PUMP SO PATIENT'S TUBE FEEDING ISOSOURCE AN BE STARTED. WILL AWAIT ARRIVAL OF FEEDING PUMP.
--- NOTE | 2018-01-04 17:35 | NUR ---
PT C/O PAIN, 04/29, PAIN MEDICATION ADMINISTERED. ORDERED MEDICATION ADMINISTERED. PATIENT TOLERATED IT WELL. SAFETY AND ISOLATION PRECAUTION IN PLACE, BED ALARM ON, BED IN LOWEST POSITION, CALL LIGHT WITHIN REACH, WILL CONTINUE TO MONITOR PATIENT.
--- NOTE | 2018-01-04 18:00 | NUR ---
ORDERED ANTIBIOTICS AMIKACIN NOT GIVEN AT THIS TIME. 20 MEQ KCL BAG STILL RUNNING. WILL GIVE WHEN THE KCL BAG IS FINISHED. PATIENT RESTING IN BED, NO SIGNS OF DISTRESS NOTED. PATIENT MEDICATED FOR PAIN. SAFETY AND ISOLATION PRECAUTION IN PLACE, CALL LIGHT WITHIN REACH. WILL CONTINUE TO MONITOR PATIENT.
[2018-01-04] MEDS: CHLORHEXADINE GLUC 2% CLOTH TP SCH (18:14)
--- NOTE | 2018-01-04 18:50 | NUR ---
SECOND BAG OF ORDERED KCL HUNG, PATIENT REFUSED MEDICATION, AND REQUESTED TO HAVE IV REMOVED. INFORMED PATIENT THE NECESSITY OF IV FOR IVF AND FOR ANTIBIOTICS. PATIENT VERBALIZED UNDERSTANDING BUT REQUESTED TO HAVE R HAND IV REMOVED BECAUSE OF PAIN. R HAND IV INFILTRATED, IV REMOVED, IV CATHETER INTACT. IVF STARTED ON LEFT LOWER SIDE OF ABD 18G, IV INTACT, PATENT, AND ASYMPTOMATIC. PATIENT AGREED TO IVF FLUIDS, JUST NOT KCL. 95 ML BAG OF KCL WASTED. SAFETY AND ISOLATION PRECAUTION IN PLACE, BED ALARM ON, BED IN LOWEST POSITION, CALL LIGHT WITHIN REACH, WILL CONTINUE TO MONITOR PATIENT.
--- NOTE | 2018-01-04 19:15 | NUR ---
REPORT GIVEN TO SALES AND MARKETING ASSISTANT NURSE AT BEDSIDE FOR CONTINUITY OF CARE. PATIENT IN STABLE CONDITION. ENDORSED TUBE FEEDING PUMP INQUIRY TO SALES AND MARKETING ASSISTANT NURSE.
--- NOTE | 2018-01-04 19:16 | NUR ---
PATIENT REPORT RECEIVED AT BEDSIDE FROM MORNING NURSE. PATIENT IS AWAKE, WATCHING TV IN BED. PATIENT IS TRACH TO VENT. VENT SETTINGS ARE FOLLOWS: AC-16, VT-500, PEEP-5, FIO2- 30%. MULTIPLE PRESSURE ULCERS NOTED, SEE WOUND NOTES. SUPRAPUBIC CATHETER IN PLACE, DRAINING YELLOW URINE. IV SITE NOTED ON LEFT LOWER ABDOMEN, IVF INFUSING WELL. SAFETY AND CONTACT PRECAUTIONS IN PLACE. BED ALARM ON, BED IN LOWEST POSITION, CALL LIGHT WITHIN REACH, WILL CONTINUE TO MONITOR.
[2018-01-04] MEDS: MUPIROCIN 2% OINT 22 GM TUBE TP SCH (19:58)
--- NOTE | 2018-01-04 20:14 | NUR ---
RECEIVED PT STABLE ON VENT SUPPORT AT DOCUMENTED SETTINGS, SUCTIONED MODERATE AMOUNTS OF THICK YELLOW SECRETIONS, HHN TX GIVEN, TOLERATED WELL, NO RESP DISTRESS OR SOB NOTED, PORTEX 8 TRACH SECURED/PATENT/MIDLINE, VENT ALARMS SET AND AUDIBLE, AMBU BAG AT BEDSIDE, VENT PLUGGED INTO RED OUTLET, CONT PULSE OX ON, WILL CONTINUE TO MONITOR.
[2018-01-04] MEDS: AMIKACIN 750 MG in DEXTROSE 5% 100 ML IV SCH (20:48)
--- NOTE | 2018-01-04 21:30 | NUR ---
G TUBE RESIDUAL CHECKED. NO RESIDUAL NOTED. MEDS GIVEN ORDERED. MORPHINE UNABLE TO BE GIVEN AT THIS TIME DUE TO DECREASED BP. WILL RECHECK BP LATER
--- NOTE | 2018-01-04 22:45 | NUR ---
TUBE FEEDING ISOSOURCE STARTED. NO RESIDUAL NOTED IN G TUBE. TUBE FEEDING TO RUN AT 65ML/HR.
[2018-01-05] VITALS: BP 104/59
[2018-01-05] MEDS: NACL 0.9% IRR 250 ML BOTTLE IR SCH ×2 (00:04→13:41)
--- NOTE | 2018-01-05 00:11 | NUR ---
PATIENT REFUSED TO BE TURNED AT THIS TIME. TOLD HIM WHY HE NEEDS TO BE TURNED. STILL REFUSED
[2018-01-05] MEDS: MORPHINE SULFATE 4 MG/ML SYR IVP PRN (00:14)
[2018-01-05] MEDS: ACETYLCYSTEINE 20% (200 MG/ML) 200 MG/ML VIAL INH SCH ×4 (03:00→14:49)
--- NOTE | 2018-01-05 03:00 | NUR ---
CHECKED ON PATIENT. PATIENT IS ASLEEP. NO SIGNS AND SYMPTOMS OF DISTRESS NOTED. BREATHING EVEN AND UNLABORED. FLACC 0. CALL LIGHT WITHIN REACH. WILL CONTINUE TO MONITOR.
[2018-01-05] MEDS: ALBUTEROL SULFATE/IPRATROPIU 3 ML SOL IH SCH ×6 (03:36→23:41)
[2018-01-05 04:00] VITALS: BP 89/50
[2018-01-05] MEDS: CLINDAMYCIN 600 MG in DEXTROSE 5% 50 ML IV SCH ×3 (04:03→21:19)
--- NOTE | 2018-01-05 04:30 | NUR ---
PATIENT HAD A BOWEL MOVEMENT. STOOL WAS MODERATED IN AMOUNT, SEMI-FORMED AND BROWN IN COLOR. PERICARE DONE, PADS AND GOWN CHANGED. PATIENT REPOSITIONED FOR COMFORT. WILL CONTINUE TO MONITOR.
[2018-01-05] MEDS: AMIKACIN 750 MG in DEXTROSE 5% 100 ML IV SCH ×2 (04:41→18:22)
[2018-01-05] MEDS: DEXT 5% /NACL 0.9% 1,000 ML IV SCH ×2 (05:41→16:48)
[2018-01-05 07:04] LABS: BASOPHILS # (AUTO) 0.1 K/uL (0.00-0.22); BASOPHILS % (AUTO) 1.6 % (0.0-2.0); EOSINOPHILS # (AUTO) 0.2 K/uL (0-0.4); EOSINOPHILS % (AUTO) 2.4 % (0.0-4.0); HEMATOCRIT 34.6 % (36-52); HEMOGLOBIN 11.3 g/dL (12.0-18.0); LYMPHOCYTES # (AUTO) 2.4 K/uL (2.0-11.5); LYMPHOCYTES % (AUTO) 35.5 % (20.5-51.1); MEAN CORPUSCULAR HEMOGLOBIN 28 pg (27-31); MEAN CORPUSCULAR HGB CONC 33 g/dL (33-37); MEAN CORPUSCULAR VOLUME 86.6 fL (80-94); MONOCYTES # (AUTO) 0.5 K/uL (0.8-1.0); NEUTROPHILS # (AUTO) 3.7 K/uL (1.8-7.7); NEUTROPHILS % (AUTO) 53.5 % (42.2-75.2); PLATELET COUNT (AUTO) 246 K/uL (140-450); RED CELL DISTRIBUTION WIDTH 17.7 % (11.6-13.7); WHITE BLOOD COUNT (AUTO) 6.9 K/uL (4.8-10.8)
[2018-01-05 07:15] LABS: ANION GAP 5.5 (8-16); CARBON DIOXIDE 30.9 mmol/L (21-32); CREATININE 0.5 mg/dL (0.7-1.3); POTASSIUM 3.4 mmol/L (3.5-5.1)
--- NOTE | 2018-01-05 07:30 | NUR ---
PATIENT REPORT GIVEN TO MORNING NURSE AT BEDSIDE FOR CONTINUITY OF CARE. PATIENT IS IN STABLE CONDITION.
--- NOTE | 2018-01-05 07:53 | NUR ---
PT RECEIVED ON VENT SETTINGS AC/VC 16, VT 500, PEEP 5, FI02 30%.PORTEX 8. AIRWAY WAS SECURED AND PATENT. VENT ALARMS ARE SET AND FUNCTIONING. VENT WAS PLUGGED INTO RED OUTLET AND AMBU BAG WAS IN ROOM. NO RESPIRATORY DISTRESS NOTED. TX WAS GIVEN AND PT WAS SXN. PT IS STABLE AND WILL CONTINUE TO MONITOR.
[2018-01-05 08:00] VITALS: BP 97/59
[2018-01-05] MEDS: MAGNESIUM HYDROXIDE 2400 MG/30 ML UDC GT SCH ×2 (09:40→21:19)
[2018-01-05] MEDS: ASCORBIC ACID 500 MG TAB GT SCH (09:40)
[2018-01-05] MEDS: POTASSIUM CHLORIDE 10 MEQ TABER PO SCH (09:41)
[2018-01-05] MEDS: ALLOPURINOL 100 MG TAB GT SCH (09:41)
[2018-01-05] MEDS: CITALOPRAM 20 MG TAB GT SCH (09:41)
[2018-01-05] MEDS: LACTOBACILLUS RHAMNOSUS GG 1 EACH CAP GT SCH (09:41)
--- NOTE | 2018-01-05 09:41 | NUR ---
ADMINISTERED SCHEDULED MEDS GTUBE. CHECKED FOR RESIDUAL. 0ML NOTED. PT TOLERATED MEDS WELL. PT IS AWAKE. HAD SMALL BM OF BROWN STOOL. CHANGED AND WASHED PT. REPOSITIONED TO R LATERAL. O2 SAT 98%. TRACH TO VENT. NO SOB. NO SIGNS OF DISTRESS. BED IN LOW POSITION, HOB 30 DEGREES, CALL LIGHT WITHIN REACH. WILL CONTINUE TO MONITOR.
[2018-01-05] MEDS: FAMOTIDINE 20 MG TAB GT SCH (09:42)
[2018-01-05] MEDS: MULTIVITAMIN 1 TAB PO SCH (09:42)
[2018-01-05] MEDS: PREGABALIN 50 MG CAP GT SCH ×2 (09:42→21:18)
[2018-01-05] MEDS: POLYVINYL ALCOHOL 1.4% OP 15 ML SOL OP SCH ×4 (09:42→21:17)
[2018-01-05 12:00] VITALS: BP 115/72
--- NOTE | 2018-01-05 13:00 | NUR ---
DRESSING CHANGED TO BUTTOCKS AND R KNEE. PT TOLERATED WELL. REPOSITIONED TO L LATERAL. PT IS AWAKE WATCHING TV. NO SIGNS OF DISTRESS. CALL LIGHT WITHIN REACH. WILL CONTINUE TO MONITOR.
[2018-01-05] MEDS ORDERED: SKINTEGRITY HYDROGEL TP PRN (13:35)
[2018-01-05] MEDS: SKINTEGRITY HYDROGEL TP SCH (13:41)
[2018-01-05] MEDS: HYDROcodone/APAP 5/325 MG 1 TAB TAB GT PRN (13:56)
[2018-01-05] MEDS ORDERED: ACETYLCYSTEINE 20% (200 MG/ML) 200 MG/ML VIAL INH SCH (15:00)
[2018-01-05 16:00] VITALS: BP 117/74
--- NOTE | 2018-01-05 16:30 | NUR ---
STARTED NEW FEEDING 9OF ISOSOURCE TO G-TUBE AT 65ML/HR. CHECKED FOR RESIDUAL. 0ML NOTED. PT REFUSED TO BE TURNED BY POINTER MACHINE OPERATOR. PT MOUTHED "LEAVE ME ALONE." EXPLAINED TO PT NEED TO TURN Q2H. PT STILL REFUSED. NO SIGNS OF DISTRESS. O2 SAT 95%. TRACH TO VENT. CALL LIGHT WITHIN REACH. WILL CONTINUE TO MONITOR.
[2018-01-05] MEDS: CHLORHEXADINE GLUC 2% CLOTH TP SCH (17:26)
[2018-01-05] MEDS: MUPIROCIN 2% OINT 22 GM TUBE TP SCH (19:27)
--- NOTE | 2018-01-05 19:27 | NUR ---
ENDORSED PT TO ADAPTED PHYSICAL EDUCATION AIDE NURSE JO-ANN AT BEDSIDE FOR CONTINUITY OF CARE. PT IN STABLE CONDITION.
--- NOTE | 2018-01-05 19:30 | NUR ---
RECEIVED PT FROM CHRISTOS RN PT AOX1 QUADRIPLEGIC, TRACH TO VENT DEPENDENT TV 500 FIO 30 % RR 16 PEEP 5 NOT SOB NOTED PT HOB 45 DEGREE G TUBE FEEDING WELL TOLERATED IV FLUIDS ON IV ON LEFT ABD PATENT , ON TELEMETRY SR,REPOSITIONED INITIAL ASSESSMENT DONE
[2018-01-05 20:00] VITALS: BP 117/70
--- NOTE | 2018-01-05 22:00 | NUR ---
PT ON CLOSE MONITORING SR ON TELEMETRY A BIG BM GREENISH LIQUID , REPOSITIONED
[2018-01-05] MEDS: VANCOMYCIN 1GM/DEXT 5% PREMIX 200 ML IV SCH (23:03)
[2018-01-06] VITALS: BP 110/70
--- NOTE | 2018-01-06 | NUR ---
HOB 35 DEGREE TRACH TO VENT NOT SOB NOTED SUCTIONED NECESSARY REPOSITIONED Q2H ORAL CARE GIVEN WITH VAP KIT
[2018-01-06] MEDS: NACL 0.9% IRR 250 ML BOTTLE IR SCH ×2 (01:00→13:03)
--- NOTE | 2018-01-06 02:00 | NUR ---
PT REPOSITIONED, G TUBE FEEDING WELL TOLERATED, ON TELMETRY SR, TRACH TO BIRDIE REMAIN SAME SETTING NOT SOB NOTED
[2018-01-06] MEDS: ALBUTEROL SULFATE/IPRATROPIU 3 ML SOL IH SCH ×6 (03:27→23:19)
[2018-01-06 04:00] VITALS: BP 120/82
--- NOTE | 2018-01-06 04:00 | NUR ---
SPONGE BATH GIVEN LINEN CHANGED REPOSITIONED RESP THERAPY IS HERE AND GIVE BREATHING TX ORAL FERNANDO GIVEN WITH VAP KIT
[2018-01-06] MEDS: DEXT 5% /NACL 0.9% 1,000 ML IV SCH ×3 (04:38→22:50)
[2018-01-06] MEDS: CLINDAMYCIN 600 MG in DEXTROSE 5% 50 ML IV SCH ×3 (04:41→21:24)
[2018-01-06] MEDS: AMIKACIN 750 MG in DEXTROSE 5% 100 ML IV SCH ×2 (05:30→18:31)
--- NOTE | 2018-01-06 06:30 | NUR ---
PT REPOSITIONED AND SUCTIONED NECESSARY NOT SOB NOTED ON TELEMETRY SR G TUBE FEEDING WELL TOLERATED, VELASQUEZ CATH DRAINING WELL
[2018-01-06 07:10] LABS: BASOPHILS % (AUTO) 0.5 % (0.0-2.0); EOSINOPHILS # (AUTO) 0.2 K/uL (0-0.4); EOSINOPHILS % (AUTO) 1.9 % (0.0-4.0); HEMATOCRIT 36.7 % (36-52); HEMOGLOBIN 12.1 g/dL (12.0-18.0); LYMPHOCYTES # (AUTO) 2.8 K/uL (2.0-11.5); LYMPHOCYTES % (AUTO) 34.5 % (20.5-51.1); MEAN CORPUSCULAR HEMOGLOBIN 28 pg (27-31); MEAN CORPUSCULAR HGB CONC 33 g/dL (33-37); MEAN CORPUSCULAR VOLUME 85.4 fL (80-94); MONOCYTES # (AUTO) 0.5 K/uL (0.8-1.0); MONOCYTES % (AUTO) 5.9 % (1.7-9.3); NEUTROPHILS # (AUTO) 4.6 K/uL (1.8-7.7); NEUTROPHILS % (AUTO) 57.2 % (42.2-75.2); PLATELET COUNT (AUTO) 310 K/uL (140-450); RED CELL DISTRIBUTION WIDTH 18.3 % (11.6-13.7)
--- NOTE | 2018-01-06 07:20 | NUR ---
PT IS ENDORSED TO CHRISTOS BUSTOS CONTINUITY OF CARE
[2018-01-06 07:42] LABS: ANION GAP 8.8 (8-16); CARBON DIOXIDE 27.9 mmol/L (21-32); CREATININE 0.5 mg/dL (0.7-1.3); POTASSIUM 3.7 mmol/L (3.5-5.1)
[2018-01-06 08:00] VITALS: BP 119/71
--- NOTE | 2018-01-06 08:00 | NUR ---
RECEIVED REPORT FROM METAL BENCH PATTERNMAKER NURSE JO-ANN AT BEDSIDE FOR CONTINUITY OF CARE. PT IS AWAKE AND ORIENTED X3. INTRODUCED SELF AND UPDATED BOARD. PT TRACH TO VENT. ON SETTINGS FIO2 30%, PEEP 5. O2 SAT 98%. NO SOB. PT DENIES PAIN. G-TUBE FEEDING RUNNING AT 65ML/HR. IV TO L ABD INFUSING D5NS @100ML/HR. VELASQUEZ CATHETER IN PLACE. NO SIGNS OF DISTRESS. HOB 30 DEGREES, CALL LIGHT WITHIN REACH. WILL CONTINUE TO MONITOR.
[2018-01-06] MEDS: MAGNESIUM HYDROXIDE 2400 MG/30 ML UDC GT SCH ×2 (09:00→21:00)
[2018-01-06] MEDS: CITALOPRAM 20 MG TAB GT SCH (09:26)
[2018-01-06] MEDS: ASCORBIC ACID 500 MG TAB GT SCH (09:26)
[2018-01-06] MEDS: FAMOTIDINE 20 MG TAB GT SCH (09:27)
[2018-01-06] MEDS: ALLOPURINOL 100 MG TAB GT SCH (09:27)
[2018-01-06] MEDS: MULTIVITAMIN 1 TAB PO SCH (09:27)
[2018-01-06] MEDS: PREGABALIN 50 MG CAP GT SCH ×2 (09:27→21:24)
[2018-01-06] MEDS: POLYVINYL ALCOHOL 1.4% OP 15 ML SOL OP SCH ×4 (09:27→21:24)
[2018-01-06] MEDS: LACTOBACILLUS RHAMNOSUS GG 1 EACH CAP GT SCH (09:27)
[2018-01-06] MEDS: POTASSIUM CHLORIDE 10 MEQ TABER PO SCH (09:27)
[2018-01-06] MEDS: SKINTEGRITY HYDROGEL TP SCH (09:28)
--- NOTE | 2018-01-06 09:40 | NUR ---
CHANGED DRESSING TO R KNEE. MINIMAL DRAINAGE. NO ODOR. APPLIED HYDROGEL TO WOUND. ADMINISTERED SCHEDULED MEDS G-TUBE. NON ADMIN MILK OF MAGNESIUM DUE TO PT HAVING BM. CHECKED G-TUBE FOR RESIDUAL. 0ML NOTED. STARTED NEW FEEDING BAG OF ISOSOURCE TO G-TUBE AT 65ML/HR. FREE WATER FLUSH 200ML Q4H. PT TOLERATING WELL. PT HAD A MODERATE BM. CHANGED LINENS AND GAVE PT A BATH. REPOSITIONED IN BED. LYING ON LEFT LATERAL. NO SIGNS OF DISTRESS. CALL LIGHT WITHIN REACH. WILL CONTINUE TO MONITOR.
[2018-01-06] MEDS: VANCOMYCIN 1GM/DEXT 5% PREMIX 200 ML IV SCH ×2 (11:29→23:32)
[2018-01-06 12:00] VITALS: BP 118/80
--- NOTE | 2018-01-06 12:03 | NUR ---
CHECKED ON PT IN ROOM. PT IS AWAKE WATCHING TV. NO SIGNS OF DISTRESS. O2 SAT 96%. TRACH TO VENT. HOB 30 DEGREES. CALL LIGHT WITHIN REACH. WILL CONTINUE TO MONITOR.
[2018-01-06] MEDS: HYDROcodone/APAP 5/325 MG 1 TAB TAB GT PRN (13:03)
--- NOTE | 2018-01-06 14:15 | NUR ---
01/06/18 RD FOLLOW UP COMPLETED PLEASE REFER TO NUTRITION ASSESSMENT UNDER CARE ACTIVITY FOR ESTIMATED NUTRITIONAL NEEDS. 1. CONTINUE NUTRITION SUPPORT: ISOSOURCE AT 65 ML/HR, TOLERATED. -PT WILL RECEIVE 2340 KCALS AND 106 GM PROTEIN/DAY WHICH WILL MEET 100% OF PTS ESTIMATED ENERGY AND PROTEIN NEEDS. 2. RD FOLLOW-UP 2-3 DAYS, HIGH RISK TRICIA COCHRAN, RD
[2018-01-06 16:00] VITALS: BP 108/62
[2018-01-06] MEDS: CHLORHEXADINE GLUC 2% CLOTH TP SCH (16:20)
--- NOTE | 2018-01-06 17:05 | NUR ---
CALLED [facility] AND SPOKE WITH JEFRY-CHIEF LIBRARIAN CIRCULATION DEPARTMENT AND STATED THEY DO NOT HAVE ISOLATION ROOM FOR PT RIGHT NOW. JEFRY STATED TO CALL BACK TOMORROW, SHE WILL LEAVE A NOTE TO [facility] THAT PT IS READY TO GO BACK AND NEED AN ISOLATION ROOM.
[2018-01-06] MEDS: MUPIROCIN 2% OINT 22 GM TUBE TP SCH (18:32)
--- NOTE | 2018-01-06 19:25 | NUR ---
ENDORSED PT TO GIFT CONSULTANT NURSE XANDER AT BEDSIDE FOR CONTINUITY OF CARE. PT IN STABLE CONDITION.
--- NOTE | 2018-01-06 19:27 | NUR ---
RECEIVED REPORT FROM RN. PT RESTING IN BED. PT TRACH TO VENT/ AWAKE ALERT AND FOLLOWS COMMANDS. IV SITE PATENT AND INTACT. WOUNDS NOTED, DRESSINGS DRY AND INTACT. CALL LIGHT WITHIN REACH. SAFETY MEASURES ENSURED. CALL LIGHT WITHIN REACH. WILL CONTINUE TO MONITOR.
[2018-01-06 20:27] VITALS: BP 116/71
[2018-01-07] VITALS: BP 125/61
[2018-01-07] MEDS: NACL 0.9% IRR 250 ML BOTTLE IR SCH ×2 (01:00→12:20)
--- NOTE | 2018-01-07 01:20 | NUR ---
PT SLEEPING IN BED. NO S/S OF ACUTE DISTRESS. PT TOLERATING G-TUBE FEEDING WELL. WILL CONTINUE TO MONITOR.
[2018-01-07] MEDS: ALBUTEROL SULFATE/IPRATROPIU 3 ML SOL IH SCH ×6 (03:46→23:07)
[2018-01-07 04:00] VITALS: BP 113/70
--- NOTE | 2018-01-07 04:06 | NUR ---
PT SLEEPING IN BED. NO S/S OF ACUTE DISTRESS. FLACC-0. CALL LIGHT WITHIN REACH. SAFETY MEASURES ENSURED. WILL CONTINUE TO MONITOR.
[2018-01-07] MEDS: CLINDAMYCIN 600 MG in DEXTROSE 5% 50 ML IV SCH ×3 (05:22→20:49)
[2018-01-07] MEDS: AMIKACIN 750 MG in DEXTROSE 5% 100 ML IV SCH ×2 (06:52→17:51)
--- NOTE | 2018-01-07 07:25 | NUR ---
ENDORSED PLAN OF CARE TO NIGHT RN. PT REMAINS STABLE.
--- NOTE | 2018-01-07 07:26 | NUR ---
RECEIVED REPORT FROM MANAGER HUMAN CAPITAL NURSE AT BEDSIDE FOR CONTINUITY OF CARE. PT IS AWAKE AND ORIENTED. APHASIC. BUT CAN MAKE NEEDS KNOWN BY MOUTHING WORDS. INTRODUCED MYSELF AND UPDATED THE BOARD. V/S WITHIN NORMAL RANGE. PT HAS IV ON L LOWER ABD 22G D5NS AT 100ML. LUNGS ARE RHONCHI. INTERMITTEN COUGH, WHITE FOAMY. SUPRA PUBIC CATH IN PLACE WITH VELASQUEZ BAG. 200ML CLEAR YELLOW URINE IN BAG. GTUBE IN PLACE. ISOSOURCE AT 65ML/HR, 200ML H2O FLUSH Q6. ON ROOM AIR. PT IS SWEATY. PT HAS TRACH TO VENT. 35% FIO2, PEEP 5, TV 500. MULTIPLE PU ON FEET AND HAS INCONTINENT DERMATITIS. R HEEL BOOT ON. WILL CONTINUE TO MONITOR PT.
[2018-01-07] MEDS: MAGNESIUM HYDROXIDE 2400 MG/30 ML UDC GT SCH ×2 (09:41→20:49)
[2018-01-07] MEDS: LACTOBACILLUS RHAMNOSUS GG 1 EACH CAP GT SCH (09:41)
[2018-01-07] MEDS: FAMOTIDINE 20 MG TAB GT SCH (09:42)
[2018-01-07] MEDS: MULTIVITAMIN 1 TAB PO SCH (09:42)
[2018-01-07] MEDS: ASCORBIC ACID 500 MG TAB GT SCH (09:42)
[2018-01-07] MEDS: PREGABALIN 50 MG CAP GT SCH ×2 (09:42→20:49)
[2018-01-07] MEDS: CITALOPRAM 20 MG TAB GT SCH (09:42)
[2018-01-07] MEDS: ALLOPURINOL 100 MG TAB GT SCH (09:42)
[2018-01-07] MEDS: DEXT 5% /NACL 0.9% 1,000 ML IV SCH ×2 (09:46→17:55)
--- NOTE | 2018-01-07 09:50 | NUR ---
HELD FEEDING. CHECKED FOR GTUBE PLACEMENT, RESIDUAL (0), AND PATENCY. ADMINISTERED ALL MORNING MEDS. PT TOLERATED WELL. WILL CONTINUE TO MONITOR PT.
[2018-01-07] MEDS: POTASSIUM CHLORIDE 20% 40 MEQ/15 ML UDC GT SCH (09:52)
[2018-01-07] MEDS: SKINTEGRITY HYDROGEL TP SCH (10:10)
[2018-01-07 11:04] VITALS: BP 97/67
[2018-01-07] MEDS: POLYVINYL ALCOHOL 1.4% OP 15 ML SOL OP SCH ×4 (11:16→20:50)
--- NOTE | 2018-01-07 11:25 | NUR ---
VENT CHECK AND SCHEDULED INLINE TREATMENT COMPLETED. SUCTIONED PATIENT RECEIVED WHITE, MODERATE, FROTHY SECRETIONS. CHANGED INNER CANNULA, TRACH TIES AND DRESSING. STOMA APPEARS INTACT AND HEALTHY WITH NO EXCESSIVE DRAINAGE. CHANGED HME. PATIENT TOLERATED TREATMENT WELL WITH NO ADVERSE EFFECTS OR SOB SEEN OR NOTED. B/S: DIMINISHED THROUGHTOUT PRE AND POST TX. WILL CONTINUE TO MONITOR.
--- NOTE | 2018-01-07 12:09 | NUR ---
CHANGED AND POSITIONED PT. PT HAD A BM. CHANGED ALL THE WOUND CARE DRESSINGS. CLEANED AND PATTED DRY. BETADINE ON SCAB. PT TOLERATED WELL. LAB WAS HERE HUE BLOOD FOR THE LATE VANCO TROUGH. WILL AWAIT TROUGH RESULTS BEFORE STARTING THE VANCO.
--- NOTE | 2018-01-07 12:24 | NUR ---
ADMINISTERED THE CLINDA. STILL WAITING ON VANCO TROUGH RESULTS TO COME IN BEFORE HANGING THE VANCO, SCHEDULED AT 1100. PT TOLERATED WELL. THE IRRIGATION BOTTLE WAS NOT ADMINISTERED BC OTHER OPEN BOTTLE STILL IN ROOM.
[2018-01-07] MEDS: VANCOMYCIN 1GM/DEXT 5% PREMIX 200 ML IV SCH ×2 (13:13→23:11)
--- NOTE | 2018-01-07 13:25 | NUR ---
PER PHARMACY, VANCO TROUGH IS FINE. CONTINUE WITH CURRENT DOSAGE. ADMINISTERED VANCO. PT TOLERATING WELL. WILL CONTINUE TO MONITOR PT.
[2018-01-07 13:45] LABS: CARBON DIOXIDE 24.5 mmol/L (21-32); CREATININE 0.5 mg/dL (0.7-1.3); POTASSIUM 5.5 mmol/L (3.5-5.1)
--- NOTE | 2018-01-07 16:01 | NUR ---
R/T AT BEDSIDE. NO SIGNS OF DISTRESS. WILL CONTINUE TO MONITOR PT.
[2018-01-07 16:36] VITALS: BP 104/66
--- NOTE | 2018-01-07 17:27 | NUR ---
CHART REVIEWED. PER [facility] AT [facility] [place], NO ISOLATION BED.
[2018-01-07] MEDS: MUPIROCIN 2% OINT 22 GM TUBE TP SCH (17:53)
[2018-01-07] MEDS: CHLORHEXADINE GLUC 2% CLOTH TP SCH (17:54)
[2018-01-07] MEDS: HYDROcodone/APAP 5/325 MG 1 TAB TAB GT PRN (17:54)
--- NOTE | 2018-01-07 18:00 | NUR ---
ADMINISTERED PAIN MED VIA G-TUBE. CHECKED FOR PLACEMENT, RESIDUAL, AND PATENCY. PT TOLERATED WELL. ADMINISTERED SCHEDULED MEDS. WILL CONTINUE TO MONITOR PT.
--- NOTE | 2018-01-07 19:20 | NUR ---
ENDORSED PT TO THE NIGHTSHIFT NURSE AT BEDSIDE FOR CONTINUITY OF CARE. PT IN STABLE CONDITION.
--- NOTE | 2018-01-07 19:31 | NUR ---
RECEIVED REPORT FROM DAY SHIFT RN, PATIENT RESTING IN BED, NON-VERBAL, BUT ABLE TO FOLLOW SIMPLE COMMENDS. PATIENT ON VENT, O2SAT 16%, NO S/S OF DISTRESS. G-TUBE IN PLACE, WITH CONTINUOUS FEEDING AT 65ML/HR, IV 22G, ON LT ABDOMEN, INFUSING D5NS AT 100ML/HR. SUPRAPUBIC CATHETER IN PLACE, DRAINING URINE BY GRAVITY. ASKED PATIENT IF HE WANTED TO BE TURNED, PATIENT USED HIS EYES TO EXPRESS "NO", BUT PATIENT USES HIS LEFT HAND POINTING AT THE TV REMOTE, SO PLACED THE TV REMOTE IN HIS HAND. WOUND BED IS ACTIVATED, SAFETY MEASURE ENSURED, HEAD OF THE BED IS ELEVATED, WILL CONTINUE TO MONITOR.
[2018-01-07 20:00] VITALS: BP 100/70
--- NOTE | 2018-01-07 22:35 | NUR ---
IV INFILTRATED, STARTED NEW IV 24 ON LT WRIST, PATIENT TOLERATED WELL. OLD IV TAKEN OUT, TIP INTACT. REPOSITIONED PATIENT WITH THE TECHNICIANS AND TRADES WORKERS, CALL LIGHT WITHIN REACH, HEAD OF THE BED ELEVATED, SAFETY MEASURE ENSURED, WILL CONTINUE TO MONITOR.
[2018-01-08] VITALS: BP 96/61
--- NOTE | 2018-01-08 00:37 | NUR ---
PATIENT MADE LARGE AMOUNT OF BOWEL MOVEMENT, CLEANED AND REPOSITIONED PATIENT WITH THE AUDIT SENIOR ASSOCIATE, CALL LIGHT WITHIN REACH, SAFETY MEASURE ENSURED, WILL CONTINUE TO MONITOR.
[2018-01-08] MEDS: NACL 0.9% IRR 250 ML BOTTLE IR SCH ×2 (01:09→13:00)
--- NOTE | 2018-01-08 02:32 | NUR ---
PATIENT IS SLEEPING, NO S/S OF DISTRESS NOTED, RESPIRATION EVEN AND UNLABORED, REPOSITIONED PATIENT WITH THE TRAIN BRAKER, CALL LIGHT WITHIN REACH, SAFETY MEASURE ENSURED, WILL CONTINUE TO MONITOR.
[2018-01-08 04:00] VITALS: BP 118/69
[2018-01-08] MEDS: DEXT 5% /NACL 0.9% 1,000 ML IV SCH ×3 (04:09→23:57)
[2018-01-08] MEDS: CLINDAMYCIN 600 MG in DEXTROSE 5% 50 ML IV SCH ×3 (04:09→21:31)
--- NOTE | 2018-01-08 04:34 | NUR ---
DUE CLEOCIN STARTED, VITAL SIGNS STABLE, REPOSITIONED PATIENT WITH THE TELEPHONE PLANT POWER OPERATOR, PATIENT TOLERATED WELL. CALL LIGHT WITHIN REACH, SAFETY MEASURE ENSURED, WILL CONTINUE TO MONITOR.
[2018-01-08] MEDS: AMIKACIN 750 MG in DEXTROSE 5% 100 ML IV SCH ×2 (05:23→18:47)
--- NOTE | 2018-01-08 06:47 | NUR ---
MODERATE AMOUNT OF BOWEL MOVEMENT NOTED, CLEANED AND REPOSITIONED THE PATIENT, CALL LIGHT WITHIN REACH, SAFETY MEASURE ENSURED, WILL CONTINUE TO MONITOR.
[2018-01-08] MEDS: ALBUTEROL SULFATE/IPRATROPIU 3 ML SOL IH SCH ×5 (07:02→23:12)
[2018-01-08 07:16] LABS: BASOPHILS # (AUTO) 0.1 K/uL (0.00-0.22); BASOPHILS % (AUTO) 0.7 % (0.0-2.0); EOSINOPHILS # (AUTO) 0.2 K/uL (0-0.4); EOSINOPHILS % (AUTO) 2.2 % (0.0-4.0); HEMATOCRIT 34.8 % (36-52); HEMOGLOBIN 11.3 g/dL (12.0-18.0); LYMPHOCYTES % (AUTO) 39.2 % (20.5-51.1); MEAN CORPUSCULAR HEMOGLOBIN 28 pg (27-31); MEAN CORPUSCULAR HGB CONC 33 g/dL (33-37); MEAN CORPUSCULAR VOLUME 86.1 fL (80-94); MONOCYTES # (AUTO) 0.7 K/uL (0.8-1.0); MONOCYTES % (AUTO) 8.9 % (1.7-9.3); NEUTROPHILS # (AUTO) 3.8 K/uL (1.8-7.7); PLATELET COUNT (AUTO) 270 K/uL (140-450); RED BLOOD CELL COUNT(AUTO) 4.04 MIL/uL (4.20-6.10); RED CELL DISTRIBUTION WIDTH 19.1 % (11.6-13.7); WHITE BLOOD COUNT (AUTO) 7.7 K/uL (4.8-10.8)
--- NOTE | 2018-01-08 07:16 | NUR ---
ENDORSED PLAN OF CARE TO DAY SHIFT, PATIENT IS IN STABLE CONDITION.
--- NOTE | 2018-01-08 07:17 | NUR ---
RECEIVED REPORT FROM CUTTING MACHINE OFFBEARER RN AT BEDSIDE, PATIENT IS RESTING IN BED, AAOX4, NON-VERBAL, ABLE TO FOLLOW SIMPLE COMMENDS AND MAKE NEED KNOWN. TRACH TO VENT WITH AC/VC SETTING, FIO2 35, TV 500, R 16,PEEP 5, NO S/S OF DISTRESS, RHONCHI LUNG SOUNDS, SR ON TELE MONITOR, SOFT ABDOMEN WITH G-TUBE IN PLACE, FEEDING WITH ISOSOURCE AT 65ML/HR, SUPRAPUBIC CATHETER IN PLACE WITH CLEAR YELLOW URINE DRAINING BY GRAVITY. SKIN IS WARM AND DRY TO TOUCH, OPEN WOUND PRESENT (SEE WOUND ASSESSMENT), IV SITE TO LEFT WRIST, 22GA, RUNNING D5NS AT 100ML/HR, QUADRIPLEGIA NOTED. VSS, DENIES PAIN, SAFETY MEASURE IN PLACE, HOB ELEVATED 30 DEGREES, WILL CONTINUE TO MONITOR.
[2018-01-08 07:31] LABS: ANION GAP 7.7 (8-16); CARBON DIOXIDE 29.1 mmol/L (21-32); CREATININE 0.5 mg/dL (0.7-1.3); POTASSIUM 3.8 mmol/L (3.5-5.1)
[2018-01-08 08:00] VITALS: BP 108/66
--- NOTE | 2018-01-08 09:00 | NUR ---
SCHEDULED MEDICATION GIVEN, PT TOLERATED WELL.
[2018-01-08] MEDS: MAGNESIUM HYDROXIDE 2400 MG/30 ML UDC GT SCH ×2 (09:14→21:30)
[2018-01-08] MEDS: POTASSIUM CHLORIDE 20% 40 MEQ/15 ML UDC GT SCH (09:14)
[2018-01-08] MEDS: SKINTEGRITY HYDROGEL TP SCH (09:15)
[2018-01-08] MEDS: ALLOPURINOL 100 MG TAB GT SCH (09:15)
[2018-01-08] MEDS: POLYVINYL ALCOHOL 1.4% OP 15 ML SOL OP SCH ×4 (09:15→21:31)
[2018-01-08] MEDS: ASCORBIC ACID 500 MG TAB GT SCH (09:15)
[2018-01-08] MEDS: FAMOTIDINE 20 MG TAB GT SCH (09:15)
[2018-01-08] MEDS: PREGABALIN 50 MG CAP GT SCH ×2 (09:15→21:30)
[2018-01-08] MEDS: MULTIVITAMIN 1 TAB PO SCH (09:15)
[2018-01-08] MEDS: CITALOPRAM 20 MG TAB GT SCH (09:15)
[2018-01-08] MEDS: LACTOBACILLUS RHAMNOSUS GG 1 EACH CAP GT SCH (09:16)
[2018-01-08] MEDS: VANCOMYCIN 1GM/DEXT 5% PREMIX 200 ML IV SCH ×2 (10:54→23:56)
--- NOTE | 2018-01-08 11:05 | NUR ---
01/08/18 RD FOLLOW UP COMPLETED REFER TO NUTRITION PROGRESS NOTE UNDER CARE ACTIVITY FOR ESTIMATED NEEDS. RD RECOMMENDATIONS: 1.CONTINUE NUTRITION SUPPORT: ISOSOURCE AT 65 ML/HR, TOLERATED. 2.RD FOLLOW-UP 2-3 DAYS, HIGH RISK JAC OLIVO RD[facility]
--- NOTE | 2018-01-08 11:47 | NUR ---
Social Service Note: I faxed patient's medical information to [facility] . Per Winter from [facility], they do not have an isolation bed for patient at this time, unable to accept patient, I informed patient's nurse Brigid of this.
[2018-01-08 12:00] VITALS: BP 101/62
--- NOTE | 2018-01-08 12:00 | NUR ---
NO S/S OF DISTRESS, VSS, DENIES PAIN. ORAL CARE PROVIDED, POSITION CHANGED FOR OFF LOAD PRESSURE.
[2018-01-08] MEDS: HYDROcodone/APAP 5/325 MG 1 TAB TAB GT PRN (15:29)
[2018-01-08] MEDS ORDERED: HYDRAGUARD CREAM TP PRN (15:55)
[2018-01-08 16:00] VITALS: BP 98/60
--- NOTE | 2018-01-08 16:00 | NUR ---
PM CARE AND F/C CARE PROVIDED, NO S/S OF DISTRESS, VSS, DENIES PAIN, WOUND CARE PROVIDED, PT TOLERATED WELL.
--- NOTE | 2018-01-08 17:31 | NUR ---
CONTINUED TO MONITOR PT ON VENT WITH SETTINGS CHARTED BREATH SOUNDS PRESENT BILAT COARSE SXN PT WITH MIN TO MOD AMT THIN OFF WHITE SECS AMBU BAG AT BEDSIDE VENT PLUGGED INTO RED OUTLET
--- NOTE | 2018-01-08 19:15 | NUR ---
REPORT GIVEN TO STRAINER CLEANER RN AT BEDSIDE FOR CONTINUE OF CARE, PT IS IN STABLE CONDITION AT THIS TIME.
--- NOTE | 2018-01-08 19:30 | NUR ---
RECEIVED REPORT FROM DAY SHIFT RN, PATIENT RESTING IN BED, NON-VERBAL, BUT ABLE TO FOLLOW SIMPLE COMMENDS AND MOUTH WORDS. PATIENT ON VENT, O2SAT 96%, NO S/S OF DISTRESS. G-TUBE IN PLACE, WITH CONTINUOUS FEEDING AT 65ML/HR, IV 24G, LT WRIST, INFUSING D5NS AT 100ML/HR. SUPRAPUBIC CATHETER IN PLACE, DRAINING URINE BY GRAVITY. WOUND BED IS ACTIVATED, SAFETY MEASURE ENSURED, HEAD OF THE BED IS ELEVATED, WILL CONTINUE TO MONITOR.
[2018-01-08 20:00] VITALS: BP 119/77
--- NOTE | 2018-01-08 20:40 | NUR ---
PATIENT MADE MODERATE AMOUNT OF BOWEL MOVEMENT, CLEANED AND REPOSITIONED PATIENT WITH THE FORESTRY FACULTY MEMBER, CALL LIGHT WITHIN REACH, SAFETY MEASURE ENSURED, WILL CONTINUE TO MONITOR.
--- NOTE | 2018-01-08 21:35 | NUR ---
NO RESIDUAL, DUE MEDICATION GIVEN ORDERED, PATIENT TOLERATED WELL. CALL LIGHT WITHIN REACH, HEAD OF BED ELEVATED, SAFETY MEASURE ENSURED, WILL CONTINUE TO MONITOR.
--- NOTE | 2018-01-08 22:50 | NUR ---
REPOSITIONED PATIENT, CALL LIGHT WITHIN REACH, SAFETY MEASURE ENSURED, WILL CONTINUE TO MONITOR.
--- NOTE | 2018-01-08 23:22 | NUR ---
CALLED PHARMACIST MARIAA, AND WAS TOLD TO GIVE VANCOMYCIN FOR TONIGHT.
--- NOTE | 2018-01-08 23:40 | NUR ---
NOTED RASH OVER PATIENT'S BODY AND FACE. PATIENT RESTING IN BED, NO S/S OF DISTRESS NOTED, BP 119/77 HR 118, O2SAT 96%, MADE CHARGE NURSE AWARE AND PAGED DR. RAUSCH.
--- NOTE | 2018-01-08 23:45 | NUR ---
MADE DR. RAUSCH AWARE OF PATIENT DEVELOPED RASH AND VITAL SIGNS ARE STABLE, DR. RAUSCH SATED," THIS IS NOT THE FIRST DOES OF VANCOMYCIN, SO CONTINUE THE VANCOMYCIN FOR TONIGHT."
[2018-01-09] VITALS (8 sets, daily range): BP systolic 100–137; BP diastolic 56–87
[2018-01-09] MEDS ORDERED: diphenhydrAMINE 50 MG/ML VIAL IVP PRN
--- NOTE | 2018-01-09 00:09 | NUR ---
PAGED DR. RESENDIZ AND MADE HIM AWARE THAT PATIENT DEVELOPED RASH ALL OVER HIS BODY AND VANCO TROUGH WAS 14.9 ON 01/07/18. RECEIVED ORDER OF "BENADRYL 50MG, IVP, Q6H FOR RASH, AND INFUSE VANCOMYCIN OVER 2 HOURS." ORDER RECEIVED AND READ BACK, DR. RESENDIZ CONFIRMED.
--- NOTE | 2018-01-09 01:02 | NUR ---
SKIN CARE AND TREATMENT DONE ORDERED, PATIENT TOLERATED WELL, REPOSITIONED PATIENT WITH FARM CONSULTANT, CALL LIGHT WITHIN REACH, SAFETY MEASURE ENSURED, WILL CONTINUE TO MONITOR.
[2018-01-09] MEDS: NACL 0.9% IRR 250 ML BOTTLE IR SCH ×2 (01:45→13:00)
[2018-01-09] MEDS: HYDRAGUARD CREAM TP SCH ×2 (01:45→13:00)
--- NOTE | 2018-01-09 02:26 | NUR ---
PATIENT IS SLEEPING, NO S/S OF DISTRESS NOTED, RESPIRATION EVEN AND UNLABORED, CALL LIGHT WITHIN REACH, SAFETY MEASURE ENSURED, WILL CONTINUE TO MONITOR.
[2018-01-09] MEDS: ALBUTEROL SULFATE/IPRATROPIU 3 ML SOL IH SCH ×6 (03:47→23:01)
--- NOTE | 2018-01-09 04:02 | NUR ---
VITAL SIGNS STABLE, CLEANED THE PATIENT AND CHANGED HIS GOWN, REPOSITIONED THE PATIENT WITH LIABILITY CLAIMS EXAMINER, CALL LIGHT WITHIN REACH, SAFETY MEASURE ENSURED, WILL CONTINUE TO MONITOR.
[2018-01-09] MEDS: CLINDAMYCIN 600 MG in DEXTROSE 5% 50 ML IV SCH ×3 (04:16→22:00)
[2018-01-09] MEDS: AMIKACIN 750 MG in DEXTROSE 5% 100 ML IV SCH ×2 (05:39→17:38)
--- NOTE | 2018-01-09 07:15 | NUR ---
ENDORSED PLAN OF CARE TO DAY SHIFT RN, PATIENT IS IN STABLE CONDITION.
--- NOTE | 2018-01-09 07:16 | NUR ---
RECEIVED REPORT FROM THE ROLL PLUGGER NURSE AT BEDSIDE FOR CONTINUITY OF CARE. PT IS AWAKE. INTRODUCED MYSELF AND UPDATED THE BOARD. PT IS DIAPHORETIC. PT IS AOX4, MOUTHS WORDS. NEEDS MADE KNOWN. PT ON TRACH TO VENT. TV 500, FIO2 45%, RESP 16, PEEP 5. GTUBE FEEDING: ISOSOURCE 65ML/HR CONTINUOUS, 200ML WATER FLUSH Q4 HR. NEW IV ON L WRIST 24G, WRAPPED IN CLING WRAP. SUPRAPUBIC CATH ATTACHED TO VELASQUEZ BAG. 100ML/ CLEAR YELLOW URINE. LBM: 01/08/18. PER ROLL PLUGGER NURSE, PT HAD A RED RASH ALL OVER HIS BODY YESTERDAY, CALLED DR. RAUSCH AND MARTÍN. CONTINUE BUT GIVE BENADRYL PRIOR AND GIVE VANCO OVER 2 HR. WILL CONTINUE TO MONITOR PT.
--- NOTE | 2018-01-09 07:18 | NUR ---
RECEIVED PT ON WITH SETTINGS CHARTED BREATH SOUNDS PRESENT BILAT COURSE SXN PT WITH MIN TO MOD AMT THIN OFF WHITE SECS TRACH SECURE AMBU BAG AT BEDSIDE VENT PLUGGED INTO RED OUTLET
[2018-01-09 08:17] LABS: BASOPHILS # (AUTO) 0.1 K/uL (0.00-0.22); BASOPHILS % (AUTO) 0.6 % (0.0-2.0); EOSINOPHILS # (AUTO) 0.2 K/uL (0-0.4); EOSINOPHILS % (AUTO) 1.8 % (0.0-4.0); HEMATOCRIT 37.2 % (36-52); LYMPHOCYTES # (AUTO) 3.9 K/uL (2.0-11.5); LYMPHOCYTES % (AUTO) 37.8 % (20.5-51.1); MEAN CORPUSCULAR HEMOGLOBIN 28 pg (27-31); MEAN CORPUSCULAR HGB CONC 32 g/dL (33-37); MEAN CORPUSCULAR VOLUME 85.8 fL (80-94); MONOCYTES # (AUTO) 0.8 K/uL (0.8-1.0); MONOCYTES % (AUTO) 7.6 % (1.7-9.3); NEUTROPHILS # (AUTO) 5.4 K/uL (1.8-7.7); NEUTROPHILS % (AUTO) 52.2 % (42.2-75.2); PLATELET COUNT (AUTO) 327 K/uL (140-450); RED BLOOD CELL COUNT(AUTO) 4.34 MIL/uL (4.20-6.10); RED CELL DISTRIBUTION WIDTH 19.6 % (11.6-13.7); WHITE BLOOD COUNT (AUTO) 10.4 K/uL (4.8-10.8)
[2018-01-09 08:52] LABS: ANION GAP 9.8 (8-16); CARBON DIOXIDE 27.8 mmol/L (21-32); CREATININE 0.5 mg/dL (0.7-1.3); POTASSIUM 3.6 mmol/L (3.5-5.1)
[2018-01-09] MEDS: POTASSIUM CHLORIDE 20% 40 MEQ/15 ML UDC GT SCH (09:00)
[2018-01-09] MEDS: CITALOPRAM 20 MG TAB GT SCH (09:21)
[2018-01-09] MEDS: FAMOTIDINE 20 MG TAB GT SCH (09:21)
[2018-01-09] MEDS: ALLOPURINOL 100 MG TAB GT SCH (09:22)
[2018-01-09] MEDS: LACTOBACILLUS RHAMNOSUS GG 1 EACH CAP GT SCH (09:22)
[2018-01-09] MEDS: MULTIVITAMIN 1 TAB PO SCH (09:22)
[2018-01-09] MEDS: ASCORBIC ACID 500 MG TAB GT SCH (09:22)
[2018-01-09] MEDS: SKINTEGRITY HYDROGEL TP SCH (09:23)
[2018-01-09] MEDS: POLYVINYL ALCOHOL 1.4% OP 15 ML SOL OP SCH ×4 (09:23→21:00)
[2018-01-09] MEDS: MAGNESIUM HYDROXIDE 2400 MG/30 ML UDC GT SCH ×2 (09:24→21:00)
[2018-01-09] MEDS: DEXT 5% /NACL 0.9% 1,000 ML IV SCH (09:25)
--- NOTE | 2018-01-09 09:27 | NUR ---
DECREASED FI02 TO .40 RN AWARE
--- NOTE | 2018-01-09 09:46 | NUR ---
ADMINISTERED MORNING MEDS VIA GTUBE. CHECKED FOR PLACEMENT, RESIDUAL (0), AND PATENCY. FLUSHED WITH 240ML TOTAL. PT TOLERATED WELL. HELD K. LEVEL IS AT 3.6. WNL. DR. RAUSCH CAME IN TO SEE PT. NOTIFIED HIM WE WILL CONTINUE WITH ABX AND [place] [facility] [place] SITE INFILTRATED. PT IS HARD STICK. WILL ASK CHARGE NURSE TO SEE IF SHE CAN RESTART IV. WILL CONTINUE TO MONITOR PT.
--- NOTE | 2018-01-09 10:02 | NUR ---
DR. YANG RAUSCH ORDERED A PICC LINE FOR PT. CALLED SON AND DAUGHTER FOR VERBAL CONSENT. NO ANSWER. CALLED [facility] AND SPOKE TO SANDRO TO SEE IF SOMEONE THERE CAN GIVE VERBAL CONSENT. THEY WILL CHECK AND GIVE ME A CALL BACK.
--- NOTE | 2018-01-09 10:25 | NUR ---
CALLED PICC LINE SERVICE TEL#: [phone] AND SPOKE WITH LAURA, STATED THE PICC LINE NURSE WILL CALL FOR THE ETA. WILL NOTIFY YOGI DENIS ASSIGNED NURSE.
[2018-01-09] MEDS: VANCOMYCIN 1GM/DEXT 5% PREMIX 200 ML IV SCH ×2 (11:00→23:45)
--- NOTE | 2018-01-09 11:32 | NUR ---
CALLED SON, RECEIVED VERBAL CONSENT FOR A PICC LINE. ODALYS,RN 2ND RN VERIFIED. CONSENT IN CHART. CALLED PICC LINE NURSEKRYSTEN. LEFT MESSAGE TO CALL BACK AND NOTIFIED OF CONSENT IN CHART. ORDERED US FOR PICC LINE. WILL NOTIFY THEM ONCE PICC LINE NURSES IS HERE.
[2018-01-09] MEDS ORDERED: Z-GUARD PASTE TP ONE (12:22)
--- NOTE | 2018-01-09 12:34 | NUR ---
WOUND CARE DONE. HISTOLOGY ASSISTANT CLEANING AND CHANGING PT AND REPOSITIONING PT.
[2018-01-09] MEDS ORDERED: Z-GUARD PASTE TP PRN (12:35)
[2018-01-09] MEDS: Z-GUARD PASTE TP SCH (13:00)
--- NOTE | 2018-01-09 13:13 | NUR ---
PICC LINE NURSE CAME AND INSERTED PICC LINE. U/S AT BEDSIDE. XRAY IS HERE TO CHECK FOR PLACEMENT. WILL CONTINUE TO MONITOR PT.
--- NOTE | 2018-01-09 13:46 | NUR ---
PER PICC LINE RN, PICC LINE READY TO USE. ADMINISTERED SCHEDULED ABX AND EYE DROPS. PT TOLERATED WELL. WILL CONTINUE TO MONITOR PT.
--- NOTE | 2018-01-09 14:40 | NUR ---
PT RESTING COMFORTABLY. NO SIGNS OF DISTRESS. WILL CONTINUE TO MONITOR PT.
--- NOTE | 2018-01-09 15:06 | NUR ---
DECREASED FIO2 TO .35 RN AWARE
--- NOTE | 2018-01-09 17:37 | NUR ---
continue to monitor pt on vent with settings as charted breath sounds present bilat coarse sxn pt with min to mod amt off white secs trach secure ambu bag at bedside vent plugged into red outlet
--- NOTE | 2018-01-09 18:34 | NUR ---
R/T HERE TO ASSIST PT TO ICU. CALLED ICU TO GIVE REPORT. THEY ARE NOT READY FOR REPORT. GATHERED ALL MEDS AND PERSONAL BELONGINGS. WILL TRANSFER PT TO ICU.
--- NOTE | 2018-01-09 18:50 | NUR ---
TRANSFERRED IN FROM TELE [facility]. BY RT AND AVIATION OPERATIONS SPECIALIST. PT IS AWAKE AND ALERT. MOUTHS WORDS. TRACH TO VENT. TV 500, FI02 35%, AC 16/MIN, PEEP 5. DENIES ANY SOB. HOB ELEVATED 30 DEGREES. ORIENTATED TO UNIT, PERSONNEL AND ACTIVITY. GT INTACT AND PATENT. SUPRAPUBIC CATH IN PLACE. PICC LINE ON LEFT UPPER ARM INTACT. HEP LOCKED. 3D TECHNOLOGIST SHOWS SR WITHOUT ECTOPICS.
--- NOTE | 2018-01-09 18:58 | NUR ---
TRANSFERRED PT TO THE ICU. GAVE BEDSIDE REPORT TO WAYNE DIEGO. PT IS IN STABLE CONDITION.
[2018-01-09] MEDS ORDERED: LORazepam 1 MG TAB GT PRN (19:10)
[2018-01-09] MEDS ORDERED: ZOLPIDEM 5 MG TAB GT PRN (19:10)
--- NOTE | 2018-01-09 19:15 | NUR ---
REPORT GIVEN TO SOULEYMANE GARCIA RN.
[2018-01-10] VITALS (19 sets, daily range): BP systolic 97–143; BP diastolic 65–113
[2018-01-10] MEDS: NACL 0.9% IRR 250 ML BOTTLE IR SCH ×2 (01:00→12:37)
[2018-01-10] MEDS: HYDRAGUARD CREAM TP SCH ×2 (01:00→13:08)
[2018-01-10] MEDS: MORPHINE SULFATE 4 MG/ML SYR IVP PRN ×2 (02:48→16:42)
[2018-01-10] MEDS: ALBUTEROL SULFATE/IPRATROPIU 3 ML SOL IH SCH ×6 (03:22→22:56)
[2018-01-10] MEDS: CLINDAMYCIN 600 MG in DEXTROSE 5% 50 ML IV SCH (05:35)
[2018-01-10] MEDS: AMIKACIN 750 MG in DEXTROSE 5% 100 ML IV SCH ×2 (06:48→17:23)
--- NOTE | 2018-01-10 07:30 | NUR ---
RECEIVED PT ON VENT SETTINGS AC/VC RR 16, VT 500, PEEP 5, FI02 35% WITH A PORTEX 8 TRACH. AIRWAY IS PATENT AND SECURED. NO RESPIRATORY DISTRESS IS NOTED. SUCTIONED SMALL AMOUNT OF WHITE THICK SECRETIONS. VENT ALARMS ARE SET AND FUNCTIONING. VENT IS PLUGGED INTO RED OUTLET AND AMBU BAG IS IN ROOM. TX WAS GIVEN AND TOLERATED. WILL CONTINUE TO MONITOR.
--- NOTE | 2018-01-10 07:30 | NUR ---
RECEIVED REPORT FROM LADDERMAN RN AT BEDSIDE, PATIENT IS RESTING IN BED, AAOX3, NONVERBAL, ABLE TO FOLLOW SIMPLE COMMANDS AND ABLE TO MAKE NEEDS KNOWN. SINUS RHYTHM ON MONITOR. TRACH TO VENT WITH SETTING: AC 16, FIO2 35%, TV 500, PEEP 5, LUNG SOUNDS DIMINISHED BILATERALLY. BREATHING EVEN AND UNLABORED. PICC LINE TO LEFT UPPER ARM PATENT AND INTACT. G-TUBE IN PLACE, RECEIVING TUBE FEEDING ISOSOURCE AT 65ML/HR, WATER FLUSH 200 ML Q4H. ABDOMEN SOFT, ROUND, NONTENDER. SUPRAPUBIC CATHETER IN PLACE WITH CLEAR YELLOW URINE DRAINING TO GRAVITY DRAINAGE BAG. SKIN IS DRY AND WARM TO TOUCH. PT IS QUADRIPLEGIC, LOWER EXTREMITIES CONTRACTED. AFEBRILE. NO DISTRESS NOTED. HOB ELEVATED 30 DEGREES,BED IN LOWEST POSITION, CALL LIGHT WITHIN REACH. WILL CONTINUE TO MONITOR.
[2018-01-10] MEDS: MAGNESIUM HYDROXIDE 2400 MG/30 ML UDC GT SCH ×2 (09:00→21:00)
[2018-01-10] MEDS: SKINTEGRITY HYDROGEL TP SCH (09:00)
[2018-01-10] MEDS ORDERED: AMIKACIN PER PHARMACY MC PRN (09:50)
[2018-01-10] MEDS ORDERED: VANCOMYCIN PER PHARMACY MC PRN (09:50)
--- NOTE | 2018-01-10 10:10 | NUR ---
MEDICATIONS ADMINISTERED ORDERED. PT TOLERATED WELL.
[2018-01-10] MEDS: LACTOBACILLUS RHAMNOSUS GG 1 EACH CAP GT SCH (10:13)
[2018-01-10] MEDS: HYDROcodone/APAP 5/325 MG 1 TAB TAB GT PRN ×2 (10:14→20:58)
[2018-01-10] MEDS: MULTIVITAMIN 1 TAB PO SCH (10:14)
[2018-01-10] MEDS: FAMOTIDINE 20 MG TAB GT SCH (10:14)
[2018-01-10] MEDS: ASCORBIC ACID 500 MG TAB GT SCH (10:14)
[2018-01-10] MEDS: POTASSIUM CHLORIDE 20% 40 MEQ/15 ML UDC GT SCH (10:15)
[2018-01-10] MEDS: POLYVINYL ALCOHOL 1.4% OP 15 ML SOL OP SCH ×4 (10:19→20:41)
[2018-01-10 10:56] LABS: ALBUMIN 2.6 g/dL (3.4-5.0); CREATININE 0.5 mg/dL (0.7-1.3); TOTAL BILIRUBIN 0.3 mg/dL (0.0-1.0)
[2018-01-10] MEDS: CITALOPRAM 20 MG TAB GT SCH (11:46)
[2018-01-10] MEDS: ALLOPURINOL 100 MG TAB GT SCH (11:46)
[2018-01-10] MEDS: VANCOMYCIN 1GM/DEXT 5% PREMIX 200 ML IV SCH ×2 (11:47→23:40)
--- NOTE | 2018-01-10 11:53 | NUR ---
PT HAD A SMALL AMOUNT OF BOWEL MOVEMENT. CLEANED AND REPOSITIONED PT. PERFORMED WOUND CARE. TOLERATED WELL.
[2018-01-10] MEDS ORDERED: CLINDAMYCIN 600 MG in DEXTROSE 5% 50 ML IV SCH (13:00)
[2018-01-10] MEDS: CLINDAMYCIN PHOS. 600MG/D5W PM 50 ML IV SCH ×2 (13:07→20:38)
[2018-01-10] MEDS: Z-GUARD PASTE TP SCH (13:08)
[2018-01-10 13:10] LABS: BASOPHILS # (AUTO) 0.1 K/uL (0.00-0.22); BASOPHILS % (AUTO) 0.6 % (0.0-2.0); EOSINOPHILS # (AUTO) 0.2 K/uL (0-0.4); EOSINOPHILS % (AUTO) 2.6 % (0.0-4.0); HEMATOCRIT 34.9 % (36-52); HEMOGLOBIN 11.3 g/dL (12.0-18.0); LYMPHOCYTES % (AUTO) 33.5 % (20.5-51.1); MEAN CORPUSCULAR HEMOGLOBIN 28 pg (27-31); MEAN CORPUSCULAR HGB CONC 33 g/dL (33-37); MEAN CORPUSCULAR VOLUME 86.1 fL (80-94); MONOCYTES # (AUTO) 0.6 K/uL (0.8-1.0); MONOCYTES % (AUTO) 6.4 % (1.7-9.3); NEUTROPHILS % (AUTO) 56.9 % (42.2-75.2); PLATELET COUNT (AUTO) 242 K/uL (140-450); RED BLOOD CELL COUNT(AUTO) 4.05 MIL/uL (4.20-6.10); RED CELL DISTRIBUTION WIDTH 19.4 % (11.6-13.7); WHITE BLOOD COUNT (AUTO) 8.8 K/uL (4.8-10.8)
--- NOTE | 2018-01-10 15:00 | NUR ---
CM NOTE CONCURRENT REVIEW DONE.
--- NOTE | 2018-01-10 17:00 | NUR ---
PT HAD A SMEAR OF BOWEL MOVEMENT. CLEANED AND REPOSITIONED PT. NO S/SX OF DISTRESS NOTED AT THIS TIME.
--- NOTE | 2018-01-10 17:20 | NUR ---
DR. SHALOM Escobar IN TO SEE PT. WILL FOLLOW UP WITH NEW ORDERS.
[2018-01-10] MEDS ORDERED: FUROSEMIDE 20 MG/2 ML VIAL IVP SCH (17:27)
--- NOTE | 2018-01-10 18:55 | NUR ---
PER CERTIFIED MEDICAL CODING SPECIALIST, COULD NOT GET GOOD VIEW VIA VENOUS BLLE ULTRASOUND. DR. RAUSCH MADE AWARE. PER DR. RAUSCH, ULTRANSOUND IS THE ONLY WAY FOR DVT DX. NO OTHER ORDER AT THIS TIME.
--- NOTE | 2018-01-10 19:15 | NUR ---
RECEIVED PATIENT REPORT AT BEDSIDE. PATIENT IS ASLEEP BUT AROUSABLE. PATIENT IS ABLE TO MOUTH WORDS. SINUS RHYTHM ON MONITOR. TRACH TO VENT WITH SETTING: AC 16, FIO2 35%, TV 500, PEEP 5, LUNG SOUNDS DIMINISHED BILATERALLY. BREATHING EVEN AND UNLABORED. O2 SAT 98% AT THIS TIME. PICC LINE TO LEFT UPPER ARM PATENT AND INTACT. G-TUBE IN PLACE WITH TUBE FEEDING RUNNING. SUPRAPUBIC CATHETER IN PLACE WITH CLEAR YELLOW URINE OUTPUT. AFEBRILE. NO DISTRESS NOTED. HOB ELEVATED 30 DEGREES,BED IN LOWEST POSITION, CALL LIGHT WITHIN REACH. WILL CONTINUE TO MONITOR.
--- NOTE | 2018-01-10 19:24 | NUR ---
REPORT GIVEN TO TSO RN FOR CONTINUITY OF CARE. NO ACUTE DISTRESS NOTED AT THIS TIME.
--- NOTE | 2018-01-10 19:27 | NUR ---
RECEIVED PT STABLE ON VENT SUPPORT AT DOCUMENTED SETTINGS, SUCTIONED SMALL AMOUNTS OF CLEAR THIN SECRETIONS, HHN TX GIVEN, TOLERATED WELL, NO RESP DISTRESS OR SOB NOTED AT THIS TIME, PORTEX 8 TRACH SECURED/PATENT/MIDLINE, ALARMS SET AND AUDIBLE, AMBU BAG AT BEDSIDE, VENT PLUGGED INTO RED OUTLET, PULSE OX ON, WILL CONT TO MONITOR.
--- NOTE | 2018-01-10 20:38 | NUR ---
ADMINISTERED DUE MEDICATIONS. PATIENT AWAKE AND WATCHING TELEVISION. G-TUBE FEEDING CHECKED FOR RESIDUALS. NO RESIDUALS NOTED. PATIENT TOLERATED WELL. WILL CONTINUE TO MONITOR
[2018-01-11] VITALS (18 sets, daily range): BP systolic 95–133; BP diastolic 64–85
--- NOTE | 2018-01-11 00:45 | NUR ---
PATIENT GIVEN BED BATH AND REPOSITIONED FOR COMFORT. PATIENT TOLERATED WELL. PATIENT REFUSING ORAL CARE AT THIS TIME. WILL CONTINUE TO MONITOR
[2018-01-11] MEDS: NACL 0.9% IRR 250 ML BOTTLE IR SCH ×2 (01:56→12:49)
[2018-01-11] MEDS: HYDRAGUARD CREAM TP SCH ×2 (01:56→13:24)
--- NOTE | 2018-01-11 01:56 | NUR ---
PATIENT ASLEEP IN BED. NO S/S OF DISTRESS NOTED
[2018-01-11] MEDS: MORPHINE SULFATE 4 MG/ML SYR IVP PRN ×4 (02:59→22:49)
[2018-01-11] MEDS: ALBUTEROL SULFATE/IPRATROPIU 3 ML SOL IH SCH ×6 (03:05→23:30)
--- NOTE | 2018-01-11 04:00 | NUR ---
PATIENT TURNED AND REPOSITIONED FOR COMFORT. PATIENT TOLERATED WELL
[2018-01-11] MEDS: CLINDAMYCIN PHOS. 600MG/D5W PM 50 ML IV SCH ×3 (04:23→20:36)
[2018-01-11 05:39] LABS: BASOPHILS # (AUTO) 0.1 K/uL (0.00-0.22); BASOPHILS % (AUTO) 0.7 % (0.0-2.0); EOSINOPHILS # (AUTO) 0.3 K/uL (0-0.4); EOSINOPHILS % (AUTO) 4.2 % (0.0-4.0); HEMATOCRIT 34.7 % (36-52); HEMOGLOBIN 11.2 g/dL (12.0-18.0); LYMPHOCYTES # (AUTO) 3.1 K/uL (2.0-11.5); LYMPHOCYTES % (AUTO) 45.2 % (20.5-51.1); MEAN CORPUSCULAR HEMOGLOBIN 28 pg (27-31); MEAN CORPUSCULAR HGB CONC 32 g/dL (33-37); MEAN CORPUSCULAR VOLUME 85.8 fL (80-94); MONOCYTES # (AUTO) 0.5 K/uL (0.8-1.0); MONOCYTES % (AUTO) 7.4 % (1.7-9.3); NEUTROPHILS % (AUTO) 42.5 % (42.2-75.2); PLATELET COUNT (AUTO) 274 K/uL (140-450); RED BLOOD CELL COUNT(AUTO) 4.04 MIL/uL (4.20-6.10); RED CELL DISTRIBUTION WIDTH 19.3 % (11.6-13.7); WHITE BLOOD COUNT (AUTO) 6.9 K/uL (4.8-10.8)
[2018-01-11 06:23] LABS: ANION GAP 6.8 (8-16); CARBON DIOXIDE 32.8 mmol/L (21-32); CREATININE 0.5 mg/dL (0.7-1.3); POTASSIUM 3.6 mmol/L (3.5-5.1)
[2018-01-11] MEDS: AMIKACIN 750 MG in DEXTROSE 5% 100 ML IV SCH ×2 (06:24→18:04)
--- NOTE | 2018-01-11 06:51 | NUR ---
RECEIVED .PT ON [place] ON A/C 16 VT 500 PEEP 5 FIO2 35 ALARMS ARE ON AND AUDUBLE BMV HOB PTS TRACH PORTEX 8 IS SECURE BS COARSE I\L SX HHN GIVEN I\L WITH 3 MG DUONEB VENT PLUGGED INTO RED OUTLET
--- NOTE | 2018-01-11 07:15 | NUR ---
PATIENT REPORT GIVEN AT BEDSIDE. PATIENT ENDORSED IN STABLE CONDITION
--- NOTE | 2018-01-11 07:30 | NUR ---
RECEIVED REPORT FROM FRAME OPERATOR NURSE AT BEDSIDE, PATIENT IS RESTING IN BED, MOUTH WORDS, ABLE TO FOLLOW SIMPLE COMMANDS AND ABLE TO MAKE NEEDS KNOWN. SINUS RHYTHM ON MONITOR. PT IS TRACH TO VENT W/ SETTING: AC 16, FIO2 35%, TV 500, PEEP 5. BREATHING EVEN AND UNLABORED. PICC LINE DOMITILA TO LEFT UPPER ARM PATENT AND INTACT. ABDOMEN SOFT, ROUND, NONTENDER. G-TUBE IN PLACE, RECEIVING TUBE FEEDING ISOSOURCE AT 65ML/HR, WATER FLUSH 200 ML Q4H. SUPRAPUBIC CATHETER IN PLACE DRAINING CLEAR YELLOW URINE. PT IS QUADRIPLEGIC, SKIN IS WARM TO TOUCH AND DIAPHORETIC. AFEBRILE. NO ACUTE DISTRESS NOTED. HOB ELEVATED 30 DEGREES,BED IN LOWEST POSITION, CALL LIGHT WITHIN REACH. WILL CONTINUE TO MONITOR.
--- NOTE | 2018-01-11 09:00 | NUR ---
DR. RAUSCH IN TO SEE PT. WILL FOLLOW UP WITH NEW ORDERS.
[2018-01-11] MEDS: POTASSIUM CHLORIDE 20% 40 MEQ/15 ML UDC GT SCH (09:08)
[2018-01-11] MEDS: MULTIVITAMIN 1 TAB PO SCH (09:09)
[2018-01-11] MEDS: CITALOPRAM 20 MG TAB GT SCH (09:09)
[2018-01-11] MEDS: ALLOPURINOL 100 MG TAB GT SCH (09:09)
[2018-01-11] MEDS: MAGNESIUM HYDROXIDE 2400 MG/30 ML UDC GT SCH ×2 (09:09→20:35)
[2018-01-11] MEDS: ASCORBIC ACID 500 MG TAB GT SCH (09:09)
[2018-01-11] MEDS: POLYVINYL ALCOHOL 1.4% OP 15 ML SOL OP SCH ×4 (09:10→20:36)
[2018-01-11] MEDS: FAMOTIDINE 20 MG TAB GT SCH (09:10)
[2018-01-11] MEDS: LACTOBACILLUS RHAMNOSUS GG 1 EACH CAP GT SCH (09:10)
[2018-01-11] MEDS: SKINTEGRITY HYDROGEL TP SCH (09:10)
--- NOTE | 2018-01-11 09:31 | NUR ---
MEDICATIONS ADMINISTERED ORDERED. PT TOLERATED WELL.
--- NOTE | 2018-01-11 11:10 | NUR ---
VENOUS ULTRASOUND FOR LOWER EXTREMITIES COMPLETED. PT TOLERATED WELL.
[2018-01-11] MEDS: VANCOMYCIN 1GM/DEXT 5% PREMIX 200 ML IV SCH ×2 (11:22→22:48)
--- NOTE | 2018-01-11 12:00 | NUR ---
PT REFUSED ORAL CARE. EDUCATION ON IMPORTANCE OF VAP ORAL CARE GIVEN. REINFORCEMENT NEEDED.
--- NOTE | 2018-01-11 13:10 | NUR ---
PAGED DR. RAUSCH TO REPORT CRITICAL RADIOLOGY RESULT. AWAITING CALL BACK.
--- NOTE | 2018-01-11 13:20 | NUR ---
PAGED DR. RAUSCH AGAIN FOR ABNORMAL VENOUS LE ULTRASOUND. AWAITING CALL BACK.
[2018-01-11] MEDS: Z-GUARD PASTE TP SCH (13:24)
--- NOTE | 2018-01-11 13:25 | NUR ---
RECEIVED A CALL BACK FROM DR. RAUSCH. MADE AWARE OF ABNORMAL RESULT OF VENOUS ULTRASOUND. ORDERS RECEIVED.
--- NOTE | 2018-01-11 13:43 | NUR ---
01/11/18 RD FOLLOW UP COMPLETED PLEASE REFER TO NUTRITION ASSESSMENT UNDER CARE ACTIVITY FOR ESTIMATED NUTRITIONAL NEEDS. 1.CONTINUE NUTRITION SUPPORT: ISOSOURCE AT 65 ML/HR, TOLERATED. 2.RD FOLLOW-UP 2-3 DAYS, HIGH RISK TRICIA COCHRAN, RD
--- NOTE | 2018-01-11 14:00 | NUR ---
PAGED DR. KLEIN A FEW TIMES BY CHARGE NURSE REGARDING NEW CONSULTATION. AWAITING CALL BACK. WILL FOLLOW UP.
[2018-01-11] MEDS ORDERED: ENOXAPARIN 100 MG/ML SYR SUBQ SCH (14:32)
--- NOTE | 2018-01-11 14:43 | NUR ---
FAXED [facility] TO [facility].
[2018-01-11 15:51] LABS: PROTHROMBIN TIME 11.7 secs (10.8-13.4)
--- NOTE | 2018-01-11 15:59 | NUR ---
ORAL CARE GIVEN, CLEANED AND REPOSITIONED PT. NO DISTRESS NOTED. VITAL SIGNS STABLE.
[2018-01-11] MEDS ORDERED: WARFARIN 5 MG TAB PO SCH (17:00)
--- NOTE | 2018-01-11 17:20 | NUR ---
NO CHANGE OF CONDITION AT THIS TIME. VITAL SIGNS STABLE. SAFETY PRECAUTIONS IN PLACE. WILL CONTINUE TO MONITOR.
--- NOTE | 2018-01-11 18:52 | NUR ---
PAGED DR. KLEIN AGAIN REGARDING NEW CONSULTATION ORDER. AWAITING CALL BACK.
--- NOTE | 2018-01-11 19:20 | NUR ---
BEDSIDE REPORT GIVEN TO NIGHT NURSE FOR CONTINUITY OF CARE. PT IS IN STABLE CONDITION.
--- NOTE | 2018-01-11 19:23 | NUR ---
RCV'D PT ON MECHANICAL VENTILATION WITH PORTEX 8 TRACH. SETTINGS CHARTED. TRACH IS IN PLACE AND SECURED. VENT IS CONNECTED TO RED OUTLET. ALARMS ARE AUDIBLE. AMBU BAG AT BEDSIDE. HHN TX OF DUONEB GIVEN. PT IS ASLEEP COMFORTABLY. RN AT BEDSIDE. NO SOB OR DISTRESS NOTED. WILL CONTINUE TO MONITOR.
--- NOTE | 2018-01-11 19:30 | NUR ---
RECEIVED REPORT FROM WAYNE BALLESTEROS FOR CONTINUITY OF CARE. VS STABLE AT THIS TIME. PT AFEBRILE. PT AROUSABLE TO NAME/TOUCH. PT COOPERATIVE. TRACH TO VENT WITH SETTINGS AC16, FIO2 35%, TV 500, AND PEEP 5. NO SIGNS OF RESPIRATORY DISTRESS NOTED. S1+S2 HEARD. PULSE ARE PALPABLE IN ALL EXTREMITIES. SR ON MONITOR. ABDOMEN ROUND, SOFT, AND NONDISTENDED. BS ACTIVE IN ALL QUADRANTS. GTUBE TO FEEDING. NO RESIDUAL NOTED. ISOSOURCE RUNNING AT 65ML/HR. SUPRAPUBIC CATHETER IN PLACE DRAINING CLEAR AND YELLOW URINE. PT HAS MANNY PICC LINE. PATENT AND INTACT. NS RUNNING TO KEEP LINE OPEN. ALL SAFETY PRECAUTIONS ARE IN PLACE. CALL LIGHT WITHIN REACH. WILL CONTINUE TO MONITOR PT.
[2018-01-11] MEDS: ENOXAPARIN 100 MG/ML SYR SUBQ SCH (20:33)
--- NOTE | 2018-01-11 20:54 | NUR ---
DR. RESENDIZ AT BEDSIDE TO SEE PT. INFORMED HIM REGARDING RENEWAL OF AMIKACIN. WILL FOLLOW-UP WITH ANY NEW ORDERS.
--- NOTE | 2018-01-11 22:45 | NUR ---
PT C/O PAIN. MEDICATION GIVEN ORDERED. VS STABLE AT THIS TIME. NO CHANGE IN CONDITION. SINUS RHYTHM ON MONITOR. NO SIGNS OF RESPIRATORY DISTRESS NOTED. WILL BED AT LOW POSSIBLE CONDITION AND ALL SAFETY PRECAUTIONS ARE IN PLACE. WILL CONTINUE TO MONITOR PT.
--- NOTE | 2018-01-11 23:35 | NUR ---
VENT CHECK DONE. HHN TX OF DUONEB GIVEN. ALARMS ARE AUDIBLE. AMBU BAG AT BEDSIDE. PT IS AWAKE AND ALERT. SXN'D SML AMT OF THIN CREAMY SECRETIONS. NO SOB OR DISTRESS NOTED. PULSOX CHANGED. SPO2 99% HR 93. WILL CONTINUE TO MONITOR.
[2018-01-12] VITALS (18 sets, daily range): BP systolic 101–120; BP diastolic 60–89
[2018-01-12] MEDS: HYDRAGUARD CREAM TP SCH ×2 (01:00→12:52)
[2018-01-12] MEDS: NACL 0.9% IRR 250 ML BOTTLE IR SCH ×2 (01:00→12:51)
--- NOTE | 2018-01-12 01:35 | NUR ---
PT ASLEEP. DOES NOT APPEAR TO BE IN ANY PAIN OR DISTRESS. GTUBE TO FEEDING. CURRENTLY NO RESIDUAL NOTED. VS STABLE AT THIS TIME. SR ON MONITOR. CALL LIGHT WITHIN REACH. ALL SAFETY PRECAUTIONS ARE IN PLACE. WILL CONTINUE TO MONITOR.
[2018-01-12] MEDS: ALBUTEROL SULFATE/IPRATROPIU 3 ML SOL IH SCH ×6 (02:13→23:23)
--- NOTE | 2018-01-12 03:33 | NUR ---
PT AWAKE AND ALERT. NO SOB OR DISTRESS NOTED. PT ASKED FOR PAIN MEDICATION RN AWARE. WILL CONTINUE TO MONITOR.
[2018-01-12] MEDS: MORPHINE SULFATE 4 MG/ML SYR IVP PRN (03:45)
--- NOTE | 2018-01-12 04:10 | NUR ---
MORNING CARE GIVEN TO PT. VELASQUEZ CARE PROVIDED. PT TOLERATED BEING TURNED AND REPOSITIONED WELL. ORAL CARE PROVIDED TO PT. VS STABLE AT THIS TIME. NO CHANGE IN CONDITION. CALL LIGHT WITHIN REACH. ALL SAFETY PRECAUTIONS ARE IN PLACE. WILL CONTINUE TO MONITOR PT.
[2018-01-12] MEDS: CLINDAMYCIN PHOS. 600MG/D5W PM 50 ML IV SCH ×3 (05:00→20:30)
[2018-01-12 05:16] LABS: BASOPHILS # (AUTO) 0.1 K/uL (0.00-0.22); BASOPHILS % (AUTO) 1.2 % (0.0-2.0); EOSINOPHILS # (AUTO) 0.2 K/uL (0-0.4); EOSINOPHILS % (AUTO) 3.2 % (0.0-4.0); HEMATOCRIT 33.2 % (36-52); HEMOGLOBIN 10.7 g/dL (12.0-18.0); LYMPHOCYTES % (AUTO) 44.9 % (20.5-51.1); MEAN CORPUSCULAR HEMOGLOBIN 28 pg (27-31); MEAN CORPUSCULAR HGB CONC 32 g/dL (33-37); MEAN CORPUSCULAR VOLUME 85.9 fL (80-94); MONOCYTES # (AUTO) 0.4 K/uL (0.8-1.0); MONOCYTES % (AUTO) 6.6 % (1.7-9.3); NEUTROPHILS # (AUTO) 2.9 K/uL (1.8-7.7); NEUTROPHILS % (AUTO) 44.1 % (42.2-75.2); PLATELET COUNT (AUTO) 257 K/uL (140-450); RED BLOOD CELL COUNT(AUTO) 3.87 MIL/uL (4.20-6.10); RED CELL DISTRIBUTION WIDTH 19.2 % (11.6-13.7); WHITE BLOOD COUNT (AUTO) 6.6 K/uL (4.8-10.8)
[2018-01-12 05:28] LABS: PROTHROMBIN TIME 11.7 secs (10.8-13.4)
[2018-01-12 05:58] LABS: ANION GAP 7.1 (8-16); CARBON DIOXIDE 29.8 mmol/L (21-32); CREATININE 0.5 mg/dL (0.7-1.3); POTASSIUM 3.9 mmol/L (3.5-5.1)
[2018-01-12] MEDS: AMIKACIN 750 MG in DEXTROSE 5% 100 ML IV SCH ×2 (06:15→17:13)
--- NOTE | 2018-01-12 06:25 | NUR ---
rec'd pt on carescape vent settings ac 16 vt 500 peep,5 fio2 35% alarms on and functioning properly, ambu bag at side of vent and vent is plugged into red outlet, i\l tx given with duoneb 3ml with no adverse reaction post tx b\s clear bilaterally, sxn pt small amt of cream color secretions, pt is trach with portex 8 and skin integrity is intact , pt was awake with no signs of distress noted
--- NOTE | 2018-01-12 07:20 | NUR ---
RECEIVED REPORT FROM DEPARTMENTAL SECRETARY RN AT BEDSIDE, PATIENT IS RESTING IN BED, AAOX4, NON-VERBAL, ABLE TO FOLLOW SIMPLE COMMENDS AND MAKE NEED KNOWN. TRACH TO VENT WITH AC/VC SETTING, FIO2 35, TV 500, R 16,PEEP 5, NO S/S OF DISTRESS, RHONCHI LUNG SOUNDS, SR ON TELE MONITOR, SOFT ABDOMEN WITH G-TUBE IN PLACE, FEEDING WITH ISOSOURCE AT 65ML/HR WITH 0 RESIDUALS, SUPRAPUBIC CATHETER IN PLACE WITH CLEAR YELLOW URINE DRAINING BY GRAVITY. SKIN IS WARM AND DRY TO TOUCH, OPEN WOUND PRESENT (SEE WOUND ASSESSMENT), PICC LINE TO LEFT UPPER ARM, PATENT AND TKO WITH NS, QUADRIPLEGIA NOTED. VSS, DENIES PAIN, SAFETY MEASURE IN PLACE, HOB ELEVATED 30 DEGREES, WILL CONTINUE TO MONITOR.
--- NOTE | 2018-01-12 07:22 | NUR ---
REPORT GIVEN TO MORNING RN FOR CONTINUITY OF CARE. PT IN STABLE CONDITION AT THIS TIME.
--- NOTE | 2018-01-12 07:25 | NUR ---
DR. KLEIN CAME IN TO SEE PT AT BEDSIDE, NO NEW ORDER AT THIS TIME.
--- NOTE | 2018-01-12 08:14 | NUR ---
PT DE SAT TO 87% INCREASED FIO2 TO 50% AND INFORMED RN LATHA.
[2018-01-12] MEDS: ALLOPURINOL 100 MG TAB GT SCH (08:51)
[2018-01-12] MEDS: POTASSIUM CHLORIDE 20% 40 MEQ/15 ML UDC GT SCH (08:51)
[2018-01-12] MEDS: MULTIVITAMIN 1 TAB PO SCH (08:51)
[2018-01-12] MEDS: CITALOPRAM 20 MG TAB GT SCH (08:52)
[2018-01-12] MEDS: LACTOBACILLUS RHAMNOSUS GG 1 EACH CAP GT SCH (08:52)
[2018-01-12] MEDS: FAMOTIDINE 20 MG TAB GT SCH (08:52)
[2018-01-12] MEDS: ASCORBIC ACID 500 MG TAB GT SCH (08:52)
[2018-01-12] MEDS: ENOXAPARIN 100 MG/ML SYR SUBQ SCH ×2 (08:56→20:39)
[2018-01-12] MEDS: MAGNESIUM HYDROXIDE 2400 MG/30 ML UDC GT SCH ×2 (08:57→20:29)
[2018-01-12] MEDS: POLYVINYL ALCOHOL 1.4% OP 15 ML SOL OP SCH ×4 (08:58→20:30)
[2018-01-12] MEDS: SKINTEGRITY HYDROGEL TP SCH (08:58)
--- NOTE | 2018-01-12 09:00 | NUR ---
DR. RAUSCH CAME IN TO SEE PT AT BEDSIDE, NO NEW ORDER AT THIS TIME.
[2018-01-12] MEDS: HYDROcodone/APAP 5/325 MG 1 TAB TAB GT PRN (09:01)
--- NOTE | 2018-01-12 09:05 | NUR ---
VENT CHECK NO SXN AT THIS TIME AIRWAY IS PATENT TRACH IN PLACE AND SECURE.
[2018-01-12] MEDS: VANCOMYCIN 1GM/DEXT 5% PREMIX 200 ML IV SCH ×2 (10:52→22:08)
--- NOTE | 2018-01-12 10:57 | NUR ---
VENT CHECK, SXN PT LARGE AMT OF CREAM COLOR SECRETIONS, B\S ARE COARSE AND PT IS AWAKE WITH NO SIGNS OF DISTRESS NOTED AT THIS TIME, DECREASED FIO2 TO 45% AND RN LATHA NOTIFIED
--- NOTE | 2018-01-12 12:00 | NUR ---
PT IS RESTING IN BED, NO S/S OF DISTRESS, VSS, DENIES PAIN, POSITION CHANGED FOR OFF LOAD PRESSURE, ORAL CARE PROVIDED.
--- NOTE | 2018-01-12 12:36 | NUR ---
VENT CHECK, PT IS SLEEPING WITH NO SIGNS OF DISTRESS NOTED AT THIS TIME DECREASED FIO2 TO 40% AND RN LATHA NOTIFIED
[2018-01-12] MEDS: Z-GUARD PASTE TP SCH (12:52)
--- NOTE | 2018-01-12 14:39 | NUR ---
WOUND CARE RE-EVALUATION NOTE: INTEGUMENTARY: -TRACH YENNY-STOMA SKIN INTACT. -GT YENNY-STOMA SKIN INTACT. -SUPRAPUBIC YENNY-STOMA SKIN INTACT. -MID ABDOMEN OLD HEALED SCARS -RIGHT AND LEFT BUTTOCKS MOISTURE ASSOCIATE DERMATITIS REDNESS IMPROVING, SKIN INTACT -BLE TRACE EDEMA, MULTIPLE REDNESS TO LATERAL LEGS AND SHINS AREAS IMPROVING, SKIN INTACT -LEFT HEEL BLACK ESCHAR 1.5X1.5CM, DRY, WITH YENNY-WOUND SKIN INTACT WITH SCALY SKIN -RIGHT KNEE PRESSURE ULCER STAGE 3, 2X2X0.3CM, NOT RESPOND TO TREATMENT -RIGHT LATERAL HEEL EXTEND TO LATERAL PORTION OF FOOT PRESSURE INJURY STAGE 2, 1.5X1 CM, EPITHELIUM TISSUE WITH RED WOUND COLOR , AREA IS DRY NO ODOR, SURROUNDING REDNESS 6X5 CM (RIGHT FOOT DEFORMITY) -RIGHT MEDIAL ANKLE PRESSURE INJURY STAGE 1 5X4 CM, BLANCHABLE REDNESS -RIGHT MID HEEL DRY BROWN SCAB 2.5X1 CM RECOMMENDATIONS: -PAINT LEFT HEEL BLACK ESCHAR WITH BETADINE SOLUTION BID WC AND LEAVE IT OPEN TO AIR -CLEANSE RIGHT AND LEFT BUTTOCKS MAD WITH SOAP AND WATER, PAT DRY, APPLY OPTIFORM CHANGE Q 5 DAY AND PRN IF SOILING -CLEANSE RIGHT LATERAL HEEL AND RIGHT MEDIAL ANKLE WITH NS, PAT DRY, APPLY OPTIFORM CHANGE Q 5 DAY AND PRN IF SOILING -CLEANSE RIGHT KNEE PRESSURE ULCER WITH NS, PAT DRY, APPLY THERAHONEY GEL AND DRY DRESSING SECURE WITH TAPE Q DAY AND PRN IF SOILING -TURN AND REPOSITION PATIENT Q2H TO LEFT AND RIGHT SIDE ONLY TO OFFLOAD SACRALCOCCYX -ASSESS AND MONITOR SKIN CONDITION DURING POSITION CHANGE, PLEASE PAY ATTENTION TO RIGHT KNEE AND HEELS -OFFLOAD BILATERAL HEELS BY PLACING PILLOWS UNDER CALVES AT ALL TIMES, UNLESS OTHERWISE CONTRAINDICATED -HEEL RAISER TO RIGHT HEELS AT ALL TIMES -PRESSURE REDISTRIBUTION SURFACE THERAPY -KEEP SKIN CLEAN AND DRY AT ALL TIMES. RECOMMENDATIONS DISCUSSED WITH PRIMARY RN
--- NOTE | 2018-01-12 15:06 | NUR ---
VENT CHECK INLINE TX DUONEB 3ML WITH NO ADVERSE REACTION POST TX COARSE CRACKLES NO SUCTION PT TOLERATED WELL DECREASE FIO2 TO 30% RN LATHA NOTIFIED
[2018-01-12] MEDS ORDERED: THERAHONEY GEL 42.5 GM TP PRN (15:10)
--- NOTE | 2018-01-12 16:00 | NUR ---
NO CHANGE OF CONDITION AT THIS TIME, NO S/S OF DISTRESS, VSS, DENIES PAIN, POSITION CHANGED FOR OFF LOAD PRESSURE.
--- NOTE | 2018-01-12 16:55 | NUR ---
VENT CHECK CHANGE INNER CANNULA AND GAUZE WITH NO ADVERSE EFFEXCTS. SXN PT TOLERATED WELL
[2018-01-12] MEDS ORDERED: WARFARIN 5 MG TAB PO SCH (17:00)
--- NOTE | 2018-01-12 19:15 | NUR ---
REPORT GIVEN TO CLIPPER MACHINE NURSE AT BEDSIDE FOR CONTINUE OF CARE, PT IS IN STABLE CONDITION AT THIS TIME.
--- NOTE | 2018-01-12 19:30 | NUR ---
RECEIVED REPORT FROM MORNING RN FOR CONTINUITY OF CARE. VS STABLE AT THIS TIME. FLACC 0. DOES NOT APPEAR TO BE IN ANY SIGNS OF DISTRESS. PT NONVERBAL. TRACH TO VENT WITH SETTINGS: AC16, FIO2 30%, TV 500, AND PEEP 5. NO SIGNS OF RESPIRATORY DISTRESS. LUNG SOUNDS DIMINISHED. S1+S2 HEARD. SR ON MONITOR. PULSES ARE PALPABLE IN ALL EXTREMITIES. ABDOMEN ROUND, SOFT, AND NONDISTENDED. GTUBE TO FEEDING WITH ISOSOURCE RUNNING 65ML/HR. NO RESIDUAL NOTED. SUPRAPUBIC CATHETER IN PLACE AND DRAINING CLEAR AND YELLOW URINE. PT HAS MANNY PICC LINE PATENT, INTACT, AND ASYMPTOMATIC. ALL SAFETY PRECAUTIONS ARE IN PLACE. BED AT LOW POSSIBLE POSITION. CALL LIGHT WITHIN REACH. WILL CONTINUE TO MONITOR PT.
--- NOTE | 2018-01-12 23:17 | NUR ---
RT AT BEDSIDE. VS STABLE AT THIS TIME. NO SIGNS OF RESPIRATORY DISTRESS NOTED. DOES NOT APPEAR TO BE IN ANY PAIN. SINUS RHYTHM ON MONITOR. WILL CONTINUE TO MONITOR.
[2018-01-13] VITALS (18 sets, daily range): BP systolic 105–140; BP diastolic 63–83
[2018-01-13] MEDS: NACL 0.9% IRR 250 ML BOTTLE IR SCH ×2 (01:00→13:20)
[2018-01-13] MEDS: HYDRAGUARD CREAM TP SCH ×2 (01:00→13:19)
--- NOTE | 2018-01-13 02:19 | NUR ---
VS STABLE AT THIS TIME. PT ASLEEP. DOES NOT APPEAR TO BE IN PAIN OR IN ANY SIGNS OF DISTRESS. FEEDING CURRENTLY RUNNING. TOLERATING FEEDING WELL AND NO RESIDUAL NOTED. WILL CONTINUE TO MONITOR PT.
[2018-01-13] MEDS: ALBUTEROL SULFATE/IPRATROPIU 3 ML SOL IH SCH ×6 (03:42→23:51)
--- NOTE | 2018-01-13 04:55 | NUR ---
PT TURNED AND REPOSITIONED. MORNING CARE PROVIDED. PT HAD A LARGE BM THAT IS PASTY. PT SOAKED WITH BM. ALL LINENS AND GOWNS CHANGED. PT TOLERATED BEING TURNED AND REPOSITIONED. VS STABLE. SR ON MONITOR. WILL CONTINUE TO MONITOR PT.
[2018-01-13] MEDS: CLINDAMYCIN PHOS. 600MG/D5W PM 50 ML IV SCH ×2 (05:25→13:16)
[2018-01-13] MEDS: MORPHINE SULFATE 4 MG/ML SYR IVP PRN (05:26)
[2018-01-13] MEDS: AMIKACIN 750 MG in DEXTROSE 5% 100 ML IV SCH (06:15)
[2018-01-13 06:20] LABS: BASOPHILS # (AUTO) 0.1 K/uL (0.00-0.22); BASOPHILS % (AUTO) 0.9 % (0.0-2.0); EOSINOPHILS # (AUTO) 0.1 K/uL (0-0.4); EOSINOPHILS % (AUTO) 1.8 % (0.0-4.0); HEMATOCRIT 35.1 % (36-52); HEMOGLOBIN 11.3 g/dL (12.0-18.0); LYMPHOCYTES % (AUTO) 44.4 % (20.5-51.1); MEAN CORPUSCULAR HEMOGLOBIN 28 pg (27-31); MEAN CORPUSCULAR HGB CONC 32 g/dL (33-37); MEAN CORPUSCULAR VOLUME 85.9 fL (80-94); MONOCYTES # (AUTO) 0.4 K/uL (0.8-1.0); MONOCYTES % (AUTO) 6.2 % (1.7-9.3); NEUTROPHILS # (AUTO) 3.1 K/uL (1.8-7.7); NEUTROPHILS % (AUTO) 46.7 % (42.2-75.2); PLATELET COUNT (AUTO) 296 K/uL (140-450); RED BLOOD CELL COUNT(AUTO) 4.09 MIL/uL (4.20-6.10); RED CELL DISTRIBUTION WIDTH 19.7 % (11.6-13.7); WHITE BLOOD COUNT (AUTO) 6.7 K/uL (4.8-10.8)
[2018-01-13 06:40] LABS: PROTHROMBIN TIME 14.1 secs (10.8-13.4)
[2018-01-13 07:03] LABS: ANION GAP 6.6 (8-16); CARBON DIOXIDE 32.3 mmol/L (21-32); CREATININE 0.6 mg/dL (0.7-1.3); POTASSIUM 3.9 mmol/L (3.5-5.1)
--- NOTE | 2018-01-13 07:21 | NUR ---
REPORT GIVEN TO MORNING RN FOR CONTINUITY OF CARE. PT IN STABLE CONDITION AT THIS TIME.
--- NOTE | 2018-01-13 07:21 | NUR ---
RECEIVED REPORT FROM NIGHT RN. PT RESTING IN BED, FLACC 0, NONVERBAL/APHASIC BUT ABLE TO MOUTH WORDS FOR COMMUNICATION. PT IS TRACH TO VENT. PT IS A&0X3. PERRL. PT IS CONTRACTED; VERY STIFF EXTREMITIES. PTS LUNG SOUNDS ARE DIMINISHED IN ALL LOBES. PT HAS G-TUBE FOR ISOSOURCE FEEDS RUNNING 65 ML/HR WITH 200ML FREE H20 FLUSH Q4H. PS G-TUBE IS PATENT, IRRIGATED. PT IS SR ON MONITOR AND CONNECTED TO LABELS MOLDER. PT HAS SUPRAPUBIC CATHETER WITH CLEAR YELLOW URINE IN DRAINAGE BAG. PT HAS ALLERGY BAND ON AND ID BAND. PT HAD LEFT UPPER ARM PICC LINE, DRESSING INTACT AND DRY. PTS SKIN IT NOT INTACT; RIGHT KNEE WOUND, LEFT AND RIGHT HEEL . PT <3 CAP REFILL IN EXTREMITIES. PT HAS PITTING EDEMA ON LOWER LIMBS, +2. PT'S BED IS LOCK AND ALARM ON; SIDE RAILS ELEVATED; CALL LIGHT WITHIN REACH; LOWEST POSITION WITH HOB 35 DEG.
--- NOTE | 2018-01-13 07:46 | NUR ---
RECEIVED ON A TraveeSCAPE R860 VENTILATOR PLUGGED INTO RED OUTLET TOLERATING WELL WITHOUT ADVERSE REACTIONS NOTED TO A PORTEX DCT #8 AIRWAY SECURED WITH A [place] TRACH TIE CUFF PRESS CHECKED NOTED AMBU BAG NOTED AT HOB LOC ASLEEP EASILY AWAKENS SKIN TONE PINK BREATH SOUNDS RHONCHI BILATERAL WITH GOOD CHEST RISE DEEP TRACHEAL SUCTION FOR LARGE THICK YELLOW SECRETIONS AIRWAY PATENT
[2018-01-13] MEDS: MAGNESIUM HYDROXIDE 2400 MG/30 ML UDC GT SCH ×2 (08:58→20:38)
[2018-01-13] MEDS: MULTIVITAMIN 1 TAB PO SCH (08:58)
[2018-01-13] MEDS: POTASSIUM CHLORIDE 20% 40 MEQ/15 ML UDC GT SCH (08:58)
[2018-01-13] MEDS: CITALOPRAM 20 MG TAB GT SCH (08:59)
[2018-01-13] MEDS: ALLOPURINOL 100 MG TAB GT SCH (08:59)
[2018-01-13] MEDS: FAMOTIDINE 20 MG TAB GT SCH (08:59)
[2018-01-13] MEDS: LACTOBACILLUS RHAMNOSUS GG 1 EACH CAP GT SCH (08:59)
[2018-01-13] MEDS: ASCORBIC ACID 500 MG TAB GT SCH (08:59)
[2018-01-13] MEDS: ENOXAPARIN 100 MG/ML SYR SUBQ SCH ×2 (09:02→20:38)
[2018-01-13] MEDS: POLYVINYL ALCOHOL 1.4% OP 15 ML SOL OP SCH ×4 (09:05→20:38)
[2018-01-13] MEDS: HYDROcodone/APAP 5/325 MG 1 TAB TAB GT PRN (09:16)
--- NOTE | 2018-01-13 10:10 | NUR ---
AWAKE AND ALERT WATCHING TELEVISION AT THIS TIME BREATH SOUNDS COARSE RHONCHI BILATERAL WITH GOOD CHEST RISE DEEP TRACHEAL SUCTION FOR LARGE THICK YELLOW SECRETIONS AIRWAY PATENT
--- NOTE | 2018-01-13 10:45 | NUR ---
PT RESTING; DENIES ALL PAIN. PT STATES HE IS COMFORTABLE. REPOSITIONED PT FOR COMFORT AND ENSURED BED IS IN LOWEST POSITION, LOCK ON, ALARM ON, RAILS ELEVATED.
--- NOTE | 2018-01-13 10:45 | NUR ---
CALLED LAB FOR BLOOD DRAW FOR ANASTASIIA COLEY
--- NOTE | 2018-01-13 10:50 | NUR ---
LAB HERE TO DRAW BLOOD.
--- NOTE | 2018-01-13 11:49 | NUR ---
RT AT BEDSIDE, CHECKING PT VENT SETTING AND ON PT STATUS
--- NOTE | 2018-01-13 11:50 | NUR ---
NO APPARENT RESPIRATORY DISTRESS NOTED BREATH SOUNDS COARSE RHONCHI BILATERAL GOOD CHEST RISE DEEP TRACHEAL SUCTION FOR LARGE THICK PALE YELLOW SECRETIONS AIRWAY PATENT
[2018-01-13] MEDS: THERAHONEY GEL 42.5 GM TP SCH (13:19)
[2018-01-13] MEDS: Z-GUARD PASTE TP SCH (13:20)
--- NOTE | 2018-01-13 13:22 | NUR ---
PT REQUESTS TO HAVE HEEL GUARD BOOTS OFF FOR A PERIOD OF TIME.
--- NOTE | 2018-01-13 13:51 | NUR ---
NO EVIDENCE OS RESPIRATORY DISTRESS NOTED BREATH SOUNDS RHONCHI BILATERAL GOOD CHEST RISE DEEP TRACHEAL SUCTION FOR MODERATE THICK YELLOW SECRETIONS AIRWAY PATENT TOLERATING VENTILATOR SUPPORT WELL WITOUT INCIDENT
--- NOTE | 2018-01-13 15:52 | NUR ---
PER DR. MARTÍN FRAZIER TO D/C ALL ANTIBIOTICS.
--- NOTE | 2018-01-13 15:53 | NUR ---
NO SOB NOTED DEEP TRACHEAL SUCTION FOR MODERATE SEMI THICK YELLOW SECRETIONS AIRWAY PATENT AIRWAY PATENT
--- NOTE | 2018-01-13 16:14 | NUR ---
RT WITH PT. PT SEEMS RELAXED AND RESTING. DENIES ALL PAIN
[2018-01-13] MEDS ORDERED: WARFARIN PO SCH ×2 (17:00)
--- NOTE | 2018-01-13 17:00 | NUR ---
FIRST DOSE OF COUMADIN GIVEN. EXPLAINED MEDICATION TO PT.
--- NOTE | 2018-01-13 17:21 | NUR ---
RT AT BEDSIDE. PT RESTING. DENIES ALL PAIN.
--- NOTE | 2018-01-13 17:22 | NUR ---
RESTING WELL NO SOB NOTED BREATH SOUNDS RHONCHI BILATERAL WITH GOOD CHEST RISE DEEP TRACHEAL SUCTION FOR MODERATE THICK YELLOW SECRETION AIRWAY PATENT SATURATION 97% ON FIO2 OF 30% TITRATED FIO2 TO 28& ABI/RN NOTIFIED
--- NOTE | 2018-01-13 19:15 | NUR ---
GAVE REPORT TO USHA RNJEAN, FOR CONTINUATION OF CARE.
--- NOTE | 2018-01-13 20:00 | NUR ---
PATIENT AWAKE, MOUTH WORDS, SR ON THE MONITOR, TRACH TO VENT. ON GT FEEDING, TOLERATING WELL, HOB ELEVATED. PICC LINE ON MANNY INTACT, SUPRAPUBIC CATH DRAINING CLEAR YELLOW URINE. PATIENT HAS LARGE SOFT BROWN STOOL, BED BATH AN D COMPLETE LINEN CHANGED DONE. REPOSITIONED FOR COMFORT, DENIES PAIN, REMAINS ON CONTACT ISOLATION.
[2018-01-14] VITALS (14 sets, daily range): BP systolic 113–130; BP diastolic 68–84
--- NOTE | 2018-01-14 | NUR ---
PT ASLEEP;EASILY AROUSABLE. SR ON MONITOR. NO RESIDUAL NOTED.STILL ON GTUBE FEEDING.SUPRAPUBIC CATHETER INTACT.PT REPOSITIONED.ORAL CARE DONE
[2018-01-14] MEDS: NACL 0.9% IRR 250 ML BOTTLE IR SCH ×2 (01:00→13:00)
[2018-01-14] MEDS: HYDRAGUARD CREAM TP SCH ×2 (01:00→13:00)
[2018-01-14] MEDS: ALBUTEROL SULFATE/IPRATROPIU 3 ML SOL IH SCH ×4 (02:25→15:43)
--- NOTE | 2018-01-14 03:13 | NUR ---
PT AWAKE; SECRETIONS SUCTIONED.FLACC 0.REPOSITIONED
--- NOTE | 2018-01-14 05:30 | NUR ---
MORNING CARE DONE.BM NOTED.LARGE AMT OF SOFT BROWNISH STOOL; CREAM APPLIED TO AFFECTED AREA. SECRETIONS SUCTIONED.PT REFUSING ORAL CARE AT THIS TIME.FLACC 0.REPOSITIONED
[2018-01-14 05:38] LABS: BASOPHILS # (AUTO) 0.1 K/uL (0.00-0.22); BASOPHILS % (AUTO) 0.7 % (0.0-2.0); EOSINOPHILS # (AUTO) 0.1 K/uL (0-0.4); EOSINOPHILS % (AUTO) 1.3 % (0.0-4.0); HEMATOCRIT 34.2 % (36-52); HEMOGLOBIN 10.9 g/dL (12.0-18.0); LYMPHOCYTES % (AUTO) 39.6 % (20.5-51.1); MEAN CORPUSCULAR HEMOGLOBIN 28 pg (27-31); MEAN CORPUSCULAR HGB CONC 32 g/dL (33-37); MEAN CORPUSCULAR VOLUME 86.5 fL (80-94); MONOCYTES # (AUTO) 0.5 K/uL (0.8-1.0); MONOCYTES % (AUTO) 6.2 % (1.7-9.3); NEUTROPHILS # (AUTO) 3.9 K/uL (1.8-7.7); NEUTROPHILS % (AUTO) 52.2 % (42.2-75.2); PLATELET COUNT (AUTO) 258 K/uL (140-450); RED BLOOD CELL COUNT(AUTO) 3.95 MIL/uL (4.20-6.10); RED CELL DISTRIBUTION WIDTH 19.6 % (11.6-13.7); WHITE BLOOD COUNT (AUTO) 7.5 K/uL (4.8-10.8)
--- NOTE | 2018-01-14 06:36 | NUR ---
PT ASLEEP AT THIS TIME.TRACH TO VENT FIO2 28%.PICC LINE TO MANNY INTACT.SUPRAPUBIC CATHETER INTACT 650ML YELLOW URINE WITH SEDIMENTS NOTED.FLACC 0
[2018-01-14 06:51] LABS: PROTHROMBIN TIME 17.4 secs (10.8-13.4)
--- NOTE | 2018-01-14 07:08 | NUR ---
RECEIVED BEDSIDE REPORT FROM BOW MAKER CUSTOM RN, JEAN, FOR CONTINUITY OF CARE. PATIENT IS ASLEEP, NONVERBAL, AA0X3, ABLE TO MAKE NEEDS KNOWN. SKIN IS WARM AND DRY, NOT INTACT, PRESSURE ULCERS TO BILATERAL HEELS, AND DERMATITIS TO SACROCOCCYX. PATIENT HAS A PICC LINE TO LEFT UPPER ARM, ASYMPTOMATIC AND PATENT. HE HAS A TRACH TO VENT, FIO2 28%, LUNGS SOUNDS CLEAR, RESPIRATIONS ARE UNLABORED AND EVEN. PATIENT HAS A G-TUBE TO TUBE FEEDING, ISOSOURCE. HE HAS A SUPRAPUBIC CATHETER TO YELLOW URINE WITH SEDIMENTS. HOB IS 30 DEGREES IN LOW POSITION, CALL LIGHT WITHIN REACH, NO SIGNS OF DISTRESS AT THIS TIME. WILL CONTINUE TO MONITOR.
[2018-01-14 08:13] LABS: ALBUMIN 2.6 g/dL (3.4-5.0); ANION GAP 11.5 (8-16); CARBON DIOXIDE 28.4 mmol/L (21-32); CREATININE 0.5 mg/dL (0.7-1.3); POTASSIUM 3.9 mmol/L (3.5-5.1); TOTAL BILIRUBIN 0.2 mg/dL (0.0-1.0)
--- NOTE | 2018-01-14 08:37 | NUR ---
RECEIVED TRACH PT WITH A PORTEX 8 TRACH ON VENT. SETTINGS AC 16, VT 500 , PEEP 5 AND FIO2 28%. TRACH IS SECURE WITH A PATENT AIRWAY. VENT IS PLUGGED INTO RED OUTLET WITH ALARMS ON AND FUNCTIONING. PT IS ASLEEP BUT NOT DEMONSTRATING ANY SIGNS/SYMPTOMS OF RESPIRATORY DISTRESS. AMBU BAG IS PRESENT AT BEDSIDE. WILL CONTINUE TO MONITOR.
[2018-01-14] MEDS: POTASSIUM CHLORIDE 20% 40 MEQ/15 ML UDC GT SCH (08:50)
[2018-01-14] MEDS: ALLOPURINOL 100 MG TAB GT SCH (08:51)
[2018-01-14] MEDS: LACTOBACILLUS RHAMNOSUS GG 1 EACH CAP GT SCH (08:51)
[2018-01-14] MEDS: FAMOTIDINE 20 MG TAB GT SCH (08:51)
[2018-01-14] MEDS: ASCORBIC ACID 500 MG TAB GT SCH (08:51)
[2018-01-14] MEDS: CITALOPRAM 20 MG TAB GT SCH (08:51)
[2018-01-14] MEDS: MULTIVITAMIN 1 TAB PO SCH (08:51)
[2018-01-14] MEDS: POLYVINYL ALCOHOL 1.4% OP 15 ML SOL OP SCH ×2 (08:52→13:00)
[2018-01-14] MEDS: ENOXAPARIN 100 MG/ML SYR SUBQ SCH (08:55)
[2018-01-14] MEDS: MAGNESIUM HYDROXIDE 2400 MG/30 ML UDC GT SCH (08:56)
--- NOTE | 2018-01-14 11:18 | NUR ---
PT SUCTIONED OBTAINED MODERATE AMOUNT OF PALE YELLOW SECRETIONS, AIRWAY IS PATENT AND TRACH IS SECURE.
[2018-01-14] MEDS ORDERED: VANCOMYCIN 1GM/DEXT 5% PREMIX 200 ML IV SCH ×2 (11:30→23:00)
--- NOTE | 2018-01-14 11:35 | NUR ---
PATIENT OBSERVED WATCHING TV, NO SIGNS OF DISTRESS NOTED, AFEBRILE, DENIES ANY PAIN AT THIS TIME. CALL LIGHT WITHIN REACH, WILL CONTINUE TO MONITOR
--- NOTE | 2018-01-14 12:52 | NUR ---
DR. RAUSCH IN TO SEE AND EXAMINE PATIENT, UPDATED ON PATIENT'S CONDITION. PER DR. RAUSCH, PATIENT IS OKAY TO BE TRANSFERRED BACK TO [facility] [place]. WILL FOLLOW UP WITH DISCHARGE ORDERS.
[2018-01-14] MEDS: THERAHONEY GEL 42.5 GM TP SCH (13:00)
[2018-01-14] MEDS: Z-GUARD PASTE TP SCH (13:00)
--- NOTE | 2018-01-14 14:43 | NUR ---
01/14/2018 RD FOLLOW UP COMPLETED PLEASE REFER TO NUTRITION PROGRESS NOTE UNDER CARE ACTIVITY FOR ESTIMATED NUTRITION NEEDS. RD RECOMMENDATIONS: 1. CONTINUE NUTRITION SUPPORT ISOSOURCE 65 ML/HR VIA G-TUBE TOLERATED -NUTRITION SUPPORT PROVIDES 100% OF PT ESTIMATED NEEDS 2. RD WILL F/U 2-3 DAYS; HIGH RISK. TOMAS GRADY, JOANA
--- NOTE | 2018-01-14 16:34 | NUR ---
PATIENT DISCHARGED TO [facility], TRANSPORTED BY [facility]. PROVIDED REPORT TO [facility] RN, FOR CONTINUITY OF CARE. NO SIGN OF DISTRESS NOTED AT THIS TIME.
[2018-01-14] MEDS ORDERED: WARFARIN PO SCH ×2 (17:00)
--- NOTE | 2018-01-14 18:03 | NUR ---
LATE ENTRY. SPOKE WITH [facility] AT [facility] [place]. PATIENT CAN GO TO ROOM 6C UNDER DR. David GLYNN. EARNEST BLACK AWARE.
== END 2018-01-14 16:45 | disposition home or self-care (01) | DRG 393 ==
LOC: MED 03:30 → MIC 09:07 → MTU 01-04 16:05 → MIC 01-09 18:34
PROVIDERS: ADMIT Preventive Medicine Preventive Medicine/Occupational Environmental Medicine; ATTEND Preventive Medicine Preventive Medicine/Occupational Environmental Medicine
PROC: 5A1955Z Respiratory Ventilation, Greater than 96 Consecutive Hours (ICD-10-PCS; principal; 2018-01-02)
PROC: 02HV33Z Insertion of Infusion Device into Superior Vena Cava, Percutaneous Approach (ICD-10-PCS; 2018-01-09)
PROC: B548ZZA Ultrasonography of Superior Vena Cava, Guidance (ICD-10-PCS; 2018-01-09)
DX: K94.22 Gastrostomy infection (principal); A41.9 Sepsis, unspecified organism; I63.9 Cerebral infarction, unspecified; G82.50 Quadriplegia, unspecified; E43 Unspecified severe protein-calorie malnutrition; Z99.11 Dependence on respirator [ventilator] status; J15.1 Pneumonia due to Pseudomonas; I82.401 Acute embolism and thrombosis of unspecified deep veins of right lower extremity; J96.10 Chronic respiratory failure, unspecified whether with hypoxia or hypercapnia; E87.0 Hyperosmolality and hypernatremia; E87.1 Hypo-osmolality and hyponatremia; N39.0 Urinary tract infection, site not specified; L03.115 Cellulitis of right lower limb; L03.311 Cellulitis of abdominal wall; G35 Multiple sclerosis; E87.6 Hypokalemia; I10 Essential (primary) hypertension; K21.9 Gastro-esophageal reflux disease without esophagitis; Z86.73 Personal history of transient ischemic attack (TIA), and cerebral infarction without residual deficits; Z88.0 Allergy status to penicillin; Z88.1 Allergy status to other antibiotic agents; B96.4 Proteus (mirabilis) (morganii) as the cause of diseases classified elsewhere; D64.9 Anemia, unspecified; E87.5 Hyperkalemia; Z16.24 Resistance to multiple antibiotics; Z68.30 Body mass index [BMI] 30.0-30.9, adult; E88.09 Other disorders of plasma-protein metabolism, not elsewhere classified; R73.9 Hyperglycemia, unspecified; L89.612 Pressure ulcer of right heel, stage 2; B95.62 Methicillin resistant Staphylococcus aureus infection as the cause of diseases classified elsewhere; Z78.9 Other specified health status; N20.0 Calculus of kidney; Z93.0 Tracheostomy status
CPT/HCPCS: 36415; 36600; 71045; 80048; 80053; 80150; 80202; 81001; 82550; 82553; 82803; 83605; 83880; 84484; 85025; 85610; 85651; 85730; 86140; 87040; 87070; 87075; 87081; 87086; 87186; 87205; 89220; 93005; 93970; 94002; 94003; 94640; 96361; 96365; 99291; A6248; C1751; J0278; J1200; J1650; J1940; J1956; J2270; J3370; J3480; J3490; J7030; J7042; J7060; J7608; J7620; Q0092